=== PATIENT | female | born 1975 | race Caucasian/White ===

== ENCOUNTER 2023-01-01 08:59 | Outpatient (RCR) | payer OTHER, SELFPAY | END 2023-04-04 12:34 | disposition home or self-care (01) | LOC: PT 08:59 | DX: S83.249D Other tear of medial meniscus, current injury, unspecified knee, subsequent encounter (principal); R26.89 Other abnormalities of gait and mobility; R26.9 Unspecified abnormalities of gait and mobility | CPT/HCPCS: 97110; 97161; 97530 ==

== ENCOUNTER 2023-02-23 10:39 | Outpatient (OUT) | payer OTHER, SELFPAY ==
--- NOTE | 2023-02-23 11:00 | MR_ITS ---
[place] [id number] Patient Name: MEMO PERSAUD MRN: [id number] date: 1975 Sex: F Assigned Patient Location: MRI Current Patient Location: MRI Accession/Order Number: [id number] Exam Date: 02/23/2023 11:00 Report Date: 02/23/2023 14:58 At the request of: ROSIO MARIE Procedure: MR knee LT wo con EXAMINATION: MR knee LT wo con HISTORY: LEFT KNEE SPRAIN S83.92XA ; chronic left knee pain COMPARISON: No relevant comparison available. TECHNIQUE: A complete multi-planar MRI was performed. FINDINGS: MEDIAL COMPARTMENT MEDIAL MENISCUS: No visible tear or significant degeneration. CARTILAGE: No visible defect. BONES: 6 mm subchondral cysts along weightbearing surface of medial femoral condyle without appreciable disruption overlying cartilage. MCL AND MEDIAL CAPSULE: Normal medial collateral ligament and medial capsule. LATERAL COMPARTMENT LATERAL MENISCUS: No visible tear or significant degeneration. CARTILAGE: [Thinning and suspected defects overlying the anterior articular surface. BONES: Multiple small subchondral cysts along the anterior weightbearing surface and adjacent the patellar surface of the femoral condyle. LCL/POSTEROLAT COMPLEX: Normal lateral collateral ligament, fascicles, lateral capsule and ligaments. ANTERIOR COMPARTMENT PATELLA: Subchondral edema and suspected small subchondral cyst of the medial facet near the apex and the lateral aspect of the lateral facet, mid body. CARTILAGE: Thinning and suspected focal defects. TENDONS: Normal. EFFUSION: None. No synovitis or loose bodies. ACL: Normal appearing ligament. PCL: Normal appearing ligament. MENISCOFEMORAL: Normal meniscofemoral ligaments. OTHER: Negative. MR/MR knee LT wo con IMPRESSION: 1. Generalized] thinning throughout the knee with multiple subchondral cysts/subchondral defects involving the medial and lateral femoral condyles and the patella. 2. No appreciable meniscal injury. Electronically authenticated by: CLAUDIA LANGE Date: 02/23/2023 14:58
== END 2023-02-23 10:40 | disposition home or self-care (01) ==
PROVIDERS: Visit Provider Nurse Practitioner Family
DX: S83.92XA Sprain of unspecified site of left knee, initial encounter (principal)
CPT/HCPCS: 73721

== ENCOUNTER 2023-05-23 12:50 | Outpatient (RCR) | payer OTHER, SELFPAY | END 2023-05-24 16:29 | disposition home or self-care (01) | LOC: PT 12:50 | DX: S83.429D Sprain of lateral collateral ligament of unspecified knee, subsequent encounter (principal) | CPT/HCPCS: 97750 ==

== ENCOUNTER 2023-10-11 09:17 | Outpatient (OUT) | payer SELFPAY ==
--- NOTE | 2023-10-11 09:22 | CT_ITS ---
The [address] [address] Patient Name: MEMO PERSAUD MRN: [id number] date: 1975 Sex: F Assigned Patient Location: CT Current Patient Location: CT Accession/Order Number: [id number] Exam Date: 10/11/2023 10:09 Report Date: 10/11/2023 15:55 At the request of: ADAMARIS DIEHL Procedure: CT abdomen pelvis wo con CT abdomen pelvis wo con, 10/11/2023 10:09 AM EDT INDICATION: Abdominal Distention R14.0 Retention of urine R33.9 COMPARISON: There is no appropriate prior study for comparison. TECHNIQUE: Axial images of the abdomen were obtained with oral without IV contrast. Multiplanar reformatted images were generated and reviewed as needed. Dose reduction techniques were achieved by using automated exposure control and/or adjustment of mA and/or kV according to patient size and/or use of iterative reconstruction technique. FINDINGS: Lungs: The base of lungs is clear. No pleural effusion is noted. Liver and gallbladder: Hypodense lesions within the liver most likely consistent with simple cysts or hemangiomas. The gallbladder is unremarkable. No enlargement of intra or extrahepatic biliary ducts. Genitourinary system: Hypodense lesions within the right kidney are not fully characterized by this study. No hydronephrosis. Nonobstructive nephrolithiasis in the midpole of the left kidney.. No abnormality of the urinary bladder is noted. Other solid abdominal organs: adrenal glands, pancreas, and spleen are unremarkable. Aorta: The infrarenal abdominal aorta is nonaneurysmal. Free fluid: There is no free fluid in the abdomen pelvis. Lymph node: No lymph node enlargement by size criteria is noted. Stomach and Bowel: No abnormality of the stomach is noted. Colonic diverticulosis is noted. Otherwise, no significant abnormality of the small or large bowel is noted. Bone: There is no suspicious osteolytic or osteoblastic lesion. Lower lumbar spine degenerative changes are noted. CT/CT abdomen pelvis wo con IMPRESSION: No acute finding. Nonobstructing nephrolithiasis in midpole of the left kidney. Colonic diverticulosis. Electronically authenticated by: KATERINA REYES Date: 10/11/2023 15:55
== END 2023-10-11 09:18 | disposition home or self-care (01) ==
LOC: CT 09:17
PROVIDERS: PCP Family Medicine
DX: R14.0 Abdominal distension (gaseous) (principal); R33.9 Retention of urine, unspecified; N20.0 Calculus of kidney; K57.90 Diverticulosis of intestine, part unspecified, without perforation or abscess without bleeding
CPT/HCPCS: 74176

== ENCOUNTER 2023-10-11 09:40 | Outpatient (OUT) | payer SELFPAY ==
[2023-10-11 10:14] LABS: Basophils Absolute Auto 0.1 10^3/uL (0.0-0.1); Eosinophils Absolute Auto 0.5 10^3/uL (0.0-0.7); Eosinophils Percent Auto 6.8 % (0.9-7.0); Hematocrit 43.6 % (36.0-48.0); Hemoglobin 14.2 g/dL (12.0-16.0); Immature Granulocytes Abs Auto 0.02 10^3/uL (0.00-0.03); Immature Granulocytes Pct Auto 0.3 % (0.0-0.5); Lymphocytes Absolute Auto 1.6 10^3/uL (1.2-3.8); Lymphocytes Percent Auto 22.3 % (20.5-60.0); Mean Corpuscular HGB Conc 32.6 g/dL (29.9-35.2); Mean Corpuscular Hemoglobin 29.7 pg (26.7-34.0); Mean Corpuscular Volume 91.2 fL (81.0-99.0); Mean Platelet Volume 10.7 fL (9.5-13.5); Monocytes Absolute Auto 0.5 10^3/uL (0.3-0.8); Monocytes Percent Auto 6.8 % (1.7-12.0); Neutrophils Absolute Auto 4.5 10^3/uL (1.4-6.5); Neutrophils Percent Auto 62.8 % (43.0-75.0); Platelet Count 201 10^3/uL (150-450); Red Blood Count 4.78 10^6/uL (4.20-5.40); Red Cell Distribution Width 12.3 % (11.0-15.0); White Blood Count 7.2 10^3/uL (4.0-11.0)
[2023-10-11 11:40] LABS: Alanine Aminotransferase 40 U/L (14-59); Albumin Globulin Ratio 1.1; Albumin Level 3.8 g/dL (3.4-5.0); Alkaline Phosphatase 63 U/L (46-116); Anion Gap 16.8; Aspartate Amino Transferase 23 U/L (15-37); BUN Creatinine Ratio 18.9; Bilirubin Total 0.5 mg/dL (0.2-1.0); Calcium 9.1 mg/dL (8.5-10.1); Carbon Dioxide 21.3 mmol/L (21.0-32.0); Chloride 104 mmol/L (98-107); Chol HDL Ratio 5.2; Cholesterol 213 mg/dL (<=200); Estimated GFR (African America >60 (>=60); Estimated GFR (Non-African Ame >60 (>=60); Globulin 3.4 g/dL; Glucose 86 mg/dL (74-106); HDL Cholesterol 41 mg/dL (40-60); Potassium 4.1 mmol/L (3.5-5.1); Sodium 138 mmol/L (136-145); Total Protein 7.2 g/dL (6.4-8.2); Triglycerides 146 mg/dL (<=150); VLDL CHOLESTEROL 29.2 mg/dL
== END 2023-10-11 09:41 | disposition home or self-care (01) ==
LOC: LAB 09:43
PROVIDERS: PCP Family Medicine
DX: R39.15 Urgency of urination (principal); E66.09 Other obesity due to excess calories; Z13.1 Encounter for screening for diabetes mellitus; Z13.220 Encounter for screening for lipoid disorders; Z79.899 Other long term (current) drug therapy; Z68.39 Body mass index [BMI] 39.0-39.9, adult
CPT/HCPCS: 36415; 80053; 80061; 85025

== ENCOUNTER 2023-10-18 11:35 | Outpatient (OUT) | payer SELFPAY ==
--- NOTE | 2023-10-18 11:39 | MM_ITS ---
Patient Name: MEMO PERSAUD MR#: [id number] : 1975 Exam Date: 10/18/2023 Ordering Doctor: Non-Staff Physician RADIOLOGY REPORT PROCEDURE: MM TOMOSYNTHESIS SCREENING BI COMPARISON: MG MAMM SCREEN 3D KARTHIK CAD, 03/28/2019. MG MAMM SCREEN 3D KARTHIK CAD, 03/22/2018. MG MAMM SCREEN 3D KARTHIK CAD, 03/13/2017. MAMMO KARTHIK SCREEN, 03/29/2016. INDICATIONS: screening Calculator Name NCI Breast Cancer Risk Assessment Tool 5 Year Breast Cancer Risk 0.90% Lifetime Breast Cancer Risk 8.80% Personal Breast Cancer No Personal Ovarian Cancer No Treatments None Family Cancers Aunt-maternal with breast cancer at age ~70; Mother with thyroid cancer at age ~35; Father with prostate cancer at age 67; Brother with lymphoma cancer at age ~40. LOCATION: [facility] BREAST COMPOSITION: Scattered areas fibroglandular density. FINDINGS: DIAGNOSTIC CATEGORY 2--BENIGN FINDING: RIGHT BREAST: No significant suspicious finding. Stable small benign appearing lymph node within upper outer quadrant. No significant change has occurred. LEFT BREAST: No significant suspicious finding. No significant change has occurred. RECOMMENDATIONS: ROUTINE MAMMOGRAM AND CLINICAL EVALUATION IN 12 MONTHS. PLEASE NOTE: A NORMAL MAMMOGRAM DOES NOT EXCLUDE THE POSSIBILITY OF BREAST CANCER. A CLINICALLY SUSPICIOUS PALPABLE LUMP SHOULD BE BIOPSIED. Dictated by: Amador Dunbar M.D. on 10/19/2023 at 11:41 Approved by: Amador Dunbar M.D. on 10/19/2023 at 11:44
--- OUTSIDE RECORDS SUMMARY | 2023-10-18 11:45 | XMS_ITS | CCD ---
Author Organization [facility] Care Team Providers Care Batch Or Continuous Still Operator Name Role Phone CYNTHIA, ROSIO Admitting Unavailable CYNTHIA, ROSIO Attending Unavailable CYNTHIA, ROSIO Admitting Unavailable DR IVY OLVERA V Consulting Unavailable CYNTHIA, ROSIO Attending Unavailable CYNTHIA, ROSIO Consulting Unavailable CYNTHIA, ROSIO Admitting Unavailable CYNTHIA, ROSIO Attending Unavailable CYNTHIA, ROSIO Consulting Unavailable TINOCOJESSICA PARRA Consulting Unavailable NELIDA, DR MYRNA Case Consulting Unavailable EVELIN, IVY Attending Unavailable EVELIN, IVY Attending Unavailable EVELIN, IVY Attending Unavailable EVELIN, IVY Admitting Unavailable EVELIN, IVY Attending Unavailable EVELIN, IVY Attending Unavailable EVELIN, IVY Attending Unavailable EVELIN, IVY Attending Unavailable Myrna KRAUSE Attending Unavailable NELIDA, Myrna Case Attending Unavailable NELIDA, Myrna Case Attending Unavailable NELIDA, Myrna Case Attending Unavailable Myrna KRAUSE Attending Unavailable Mary Mccarthy Attending Unavailable Mary Mccarthy Attending Unavailable Mary Mccarthy Admitting Unavailable Allergies Allergy Classification Reported Allergen(s) Allergy Type Date of Onset Reaction(s) Facility Unclassified (1 source) Allergy to substance [facility] (1 source) DULoxetine; Translations: [DULOXETINE] Drug Allergy 07-03-2022 [facility] (1 source) DULoxetine; Translations: [Cymbalta] Drug Allergy [facility] Repository Problems Active Problems Problem Classification Problem Date Documented Da te Episodic/Chronic Joint disorders and dislocations; trauma-related (6 sources) Other tear of medial meniscus, current injury, right knee, subsequent encounter; Translations: [Other tear of medial meniscus, current injury, unspecified knee, initial encounter] Onset: 12-08-2021 Episodic Past or Other Problems Problem Classification Problem Date Documented Date Episodic/Chronic Other nervous system disorders (2 sources) Other acute postprocedural pain; Translations: [Other acute postprocedural pain] Onset: 12-07-2022 Episodic Other non-traumatic joint disorders (4 sources) Pain in right ankle and joints of right foot; Translations: [PAIN IN RIGHT ANKLE] Onset: 06-13-2021 Episodic Other non-traumatic joint disorders (1 source) Pain in right knee; Translations: [PAIN IN RIGHT KNEE] Onset: 06-21-2021 Episodic Other non-traumatic joint disorders (1 source) Pain in right shoulder; Translations: [PAIN IN RIGHT SHOULDER] Onset: 06-21-2021 Episodic Other non-traumatic joint disorders (1 source) Pain in right wrist; Translations: [PAIN IN RIGHT WRIST] Onset: 06-21-2021 Episodic Superficial injury; contusion (4 sources) Contusion of right knee, initial encounter; Translations: [CONTUSION RIGHT KNEE INITIAL ENC] Onset: 07-18-2021 Episodic Results Test Name Value Interpretation Reference Range Facility Lab Reportson 10-15-2023 Lab Reports [id number] 0TIFF Normal [facility] RAD - CT Reporton 10-12-2023 RAD - CT Report [id number] 0TIFF Normal [facility] C Urineon 10-10-2023 Bacteria identified Cx Nom (U) Microbiology PROCEDURE: Urine Culture [R1] SOURCE: U Cath BODY SITE: COLLECTED DATE/TIME: 10/08/2023 17:02 EDT RECEIVED DATE/TIME: 10/08/2023 22:35 EDT START DATE/TIME: 10/08/2023 22:35 EDT FREE TEXT SOURCE: Fabio MSN, PHOTO COLORER-STATISTICAL ASSISTANT, Fabio MSN, PHOTO COLORER-STATISTICAL ASSISTANT, Mary Liao FINAL REPORTS Final Report [] Verified Date/Time: 10/10/2023 07:24 EDT 4,000 cfu/ml Mixed skin contaminants Chantal not indicative of a Cath specimen Performing Locations R1: This test was performed at: locr, [address] [place] [address], [id number] , [place], Normal [facility] Comment on above: Performed By: #### 4 [id number] #### [facility] Laboratory [address] [place] [address] Ambulatory Visit Summaryon 0 10-08-2023 Ambulatory Visit Summary EMMA ROWLEY :1975 Visit Date:10/08/2023 Ambulatory Visit Instructions Your Diagnosis Urgency of urination Class 2 obesity due to excess calories in adult BMI 39.0-39.9,adult Breast cancer screening by mammogram Lipid screening Diabetes mellitus screening Medication management Tests Performed MA Mamm Screen w/CAD if perf and 3D Yassine -- Results Pending -- Please visit your patient portal for your results or contact your primary care physician. Your Care Team Attending Physician - Fabio ANTONIO, KENNY-Mary GRAHAM Primary Care Physician - NONE, XXXX This Is Your Medications List sulfamethoxazole-trime thoprim (Bactrim D.S. 800 mg-160 mg Tab) Contact prescribing physician if questions or concerns albuterol (Ventolin HFA 90 mcg/inh Aerosol) fluticasone nasal (fluticasone Nasal 0.05 mg/inh Colon) lisinopril (lisinopril 10 mg Tab) meclizine (meclizine 25 mg Tab) metoprolol (metoprolol 100 mg ER Tab) naproxen (naproxen 500 mg Tab) quetiapine (SEROquel 50 mg ER Tab) tizanidine (tiZANidine 4 mg Tab) Procedures Performed Arthroscopic synovectomy knee joint (12/07/2022), Meniscus (12/07/2022), robotic total laparoscopic hysterectomy with LSO with right salpingectomy (11/18/2014), bunion surgery on bilat feet, fracture of upper jaw above front teeth-surgery to repair, wisdom teeth extraction. Discharge Vitals Temperature (Oral) 37 ?C Heart Rate (Peripheral) 82 Respiratory Rate 16 Blood Pressure 132/88 Height 169 cm Height 67 in Weight 114.1 kg Weight 251.02 lb BMI 39.95 What to do next You Need to Schedule the Following Appointments Follow Up with Fabio ANTONIO, PHOTO COLORER-Mary GRAHAM When: Only if needed Comments: please fax mammogram to [facility] thank you Where: [address] [place] [phone] Medications What How Much When Instructions New sulfamethoxazole-trime thoprim (Bactrim D.S. 800 mg-160 mg Tab) 1 Tablets By Mouth Every 12 hours Duration: 7 Days Printed Prescription Unchanged albuterol (Ventolin HFA 90 mcg/ inh Aerosol) 2 Puffs Inhalation 4 times a day Contact prescribing physician if questions or concerns Unchanged fluticasone nasal (fluticasone Nasal 0.05 mg/ inh Colon) 2 Sprays Nasal Inhalation Every day each nostril Contact prescribing physician if questions or concerns Unchanged lisinopril (lisinopril 10 mg Tab) 1 Tablets By Mouth Every day Contact prescribing physician if questions or concerns Unchanged meclizine (meclizine 25 mg Tab) 1 Tablets By Mouth 3 times a day as needed for as needed for nausea/vomiting Contact prescribing physician if questions or concerns Unchanged metoprolol (metoprolol 100 mg ER Tab) 1 Tablets By Mouth 2 times a day Contact prescribing physician if questions or concerns Unchanged naproxen (naproxen 500 mg Tab) 1 Tablets By Mouth 2 times a day as needed for Pain 1-3 Contact prescribing physician if questions or concerns Unchanged quetiapine (SEROquel 50 mg ER Tab) 1 Tablets By Mouth Every day Contact prescribing physician if questions or concerns Unchanged tizanidine (tiZANidine 4 mg Tab) 0.5-1 tab By Mouth Every 8 hours as needed for Spasm Contact prescribing physician if questions or concerns Allergies Cymbalta (Tachycardia) Problems Ongoing - Any problem that you are currently receiving treatment for. Benign essential HTN Benign paroxysmal vertigo BMI 39.0-39.9,adult Chronic cough Chronic eustachian salpingitis, bilateral Class 2 obesity due to excess calories in adult Depression, major, recurrent, moderate Encounter for medication monitoring Endometriosis Fibromyalgia Hyperlipidemia, mixed IBS (irritable bowel syndrome) Mild persistent asthma Other specified hypothyroidism Urgency of urination Well adult exam Historical - Any problem that you are no longer receiving treatment for. COVID-19 virus infection Intermittent asthma with acute exacerbation Patient Survey You may receive a survey via text or e-mail asking about your office visit. Please share your experience with us by completing your survey. We appreciate your feedback and thank you for choosing us for your care. Education Materials DASH Eating Plan DASH stands for Dietary Approaches to Stop Hypertension. The DASH eating plan is a healthy eating plan that has been shown to: ? Reduce high blood pressure (hypertension). ? Reduce your risk for type 2 diabetes, heart disease, and stroke. ? Help with weight loss. What are tips for following this plan? Reading food labels ? Check food labels for the amount of salt (sodium) per serving. Choose foods with less than 5 percent of the Daily Value of sodium. Generally, foods with less than 300 milligrams (mg) of sodium per serving fit into this eating plan. ? To find whole grains, look for the word whole as the first word in the ingredient list. Shopping ? Buy products labeled as low-sodium or no salt (more content not included)... Normal [facility] Family Medicine Office/Clini c Noteon 10-08-2023 Family Medicine Office/Clinic Note Chief Complaint Pt presents for Dysuria , frequent urination x 3 days HPI Staff Frequency- yes Urgency-yes Small volume void- Dysuria- yes Pressure- Back pain- yes Nocturia- Fever/chills- Nausea/vomiting- UTI or other reason for antbx's last 30 days- Pt presents wit Dysuria x 3 days, Currently taking azo. History of Present Illness a 48-year-old female who is presenting today for urinary frequency, urgency, and pain. She has been taking Azo over the counter. She is accompanied by her . The patient underwent a hysterectomy in 2014 and retains one ovary, though it is uncertain if it is the right side. She has experienced pain over the years, including difficulty with urination, feeling as though something is obstructing her flow, and needing to urinate again shortly after. On 10/05/2023, she noticed she was holding urine longer than usual, which led to a bladder infection and kidney infection in the past. Her current symptoms are similar, including bloating, discomfort, frequency, and urgency on 10/05/2022, which were somewhat alleviated by Uristat. She also experiences lower back pain, particularly on the right side, and suspects she had a fever but has not checked her temperature. She has nausea but no vomiting or diarrhea. Her hygiene practices include showering and wiping front to back, and she uses the bathroom after intimacy. Her last urinary tract infection was 3 years ago. She does not consume enough water, avoids sodas and high sugar-containing drinks. She also feels like she is not fully emptying her bladder. Review of Systems PHQ Score Initial Depression Screen Score: 0 SCORE Negative as stated in the HPI. Physical Exam Vitals & Measurements T: 37 ?C(Oral) HR: 82(Peripheral) RR: 16 BP: 132/88 SpO2: 97% HT: 67 in HT: 169 cm WT: 114.1 kg WT: 251.02 lb BMI: 39.95 Constitutional: Well-groomed, well-nourished, no signs of acute distress. HEENT: Head normocephalic, sclera is clear. Cardiothoracic: Heart rate and rhythm is regular strong, normal S1 and S2. No murmurs, rubs, or bruits auscultated. No peripheral edema, peripheral pulses +2 Respiratory: Lung sounds are clear throughout, respirations regular nonlabored. Abdomen/GI: Abdomen soft nondistended. Positive for CVA tenderness noted. Tenderness to the pelvic area. Musculoskeletal: Gait is steady, full range of motion. Integument: No rashes or lesions noted to the exposed skin. Psychiatric: Alert and oriented x 3, pleasant, no mood changes. Assessment/Plan 1. Urgency of urination (R39.15: Urgency of urination) She does have some urgency, as well as pain. We tried doing a dipstick test but was unable to get an accurate reading. She was taking [id number] medication to help with the symptoms. I will send it in for a urinalysis and possibly a culture, but at this time at least with her symptoms and CVA tenderness, I will go ahead and send her for Bactrim. A prescription was given to her. Education was provided. Make sure she drinks plenty of water, has good hygiene, as well as voiding after intimacy. I informed her that if there is no improvement, we may need to do a CT of the abdomen and pelvis just to rule out any kidney stones. She verbalizes understanding. She will keep the provider updated. Ordered: CBC w/ Auto Diff Comprehensive Metabolic Panel Lipid Panel MA Mamm Screen w/CAD if perf and 3D Yassine UA with Cult Rflx Urine Culture 2. Class 2 obesity due to excess calories in adult (E66.09: Other obesity due to excess calories) Calorie restriction along with routine aerobic exercises discussed in order to avoid hypertension, osteoarthritis, metabolic syndrome and/or worsening of chronic underlying disease states. Ordered: CBC w/ Auto Diff Comprehensive Metabolic Panel Lipid Panel MA Mamm Screen w/CAD if perf and 3D Yassine UA with Cult Rflx Urine Culture 3. BMI 39.0-39.9,adult (Z68.39: Body mass index [BMI] 39.0-39.9, adult) See #2. Ordered: CBC w/ Auto Diff Comprehensive Metabolic Panel Lipid Panel MA Mamm Screen w/CAD if perf and 3D Yassine UA with Cult Rflx Urine Culture 4. Breast cancer screening by mammogram (Z12.31: Encounter for screening mammogram for malignant neoplasm of breast) She is due for her mammogram and is requesting it to be sent to the [facility] Ordered: CBC w/ Auto Diff Comprehensive Metabolic Panel Lipid Panel MA Mamm Screen w/CAD if perf and 3D Yassine 5. Lipid screening (Z13.220: Encounter for screening for lipoid disorders) She is due for her annual blood work we will go ahead and get those ordered she can have them done at the [facility] per her request we will call with results Ordered: CBC w/ Auto Diff Comprehensive Metabolic Panel Lipid Panel MA Mamm Screen w/CAD if perf and 3D Yassine 6. Diabetes mellitus screening (Z13.1: Encounter for screening for diabetes mellitus) See #5 Ordered: CBC w/ Auto Diff Comprehensive Metabolic Panel L (more content not included)... Normal [facility] Comment on above: Result Comment: Elec tronically Signed By: Fabio ANTONIO, PHOTO COLORER- Mary GRAHAM\.br\Date and Time Signed: 10/08/23 21:32 EDT\.br\Electronically Co-Signed By: Savannah Vaz\.br\Date and Time Co-Signed: 10/08/23 20:17 EDT Patient Educationon 10-08-19 Patient Education Nutrition DASH Eating Plan DASH stands for Dietary Approaches to Stop Hypertension. The DASH eating plan is a healthy eating plan that has been shown to: ? Reduce high blood pressure (hypertension). ? Reduce your risk for type 2 diabetes, heart disease, and stroke. ? Help with weight loss. What are tips for following this plan? Reading food labels ? Check food labels for the amount of salt (sodium) per serving. Choose foods with less than 5 percent of the Daily Value of sodium. Generally, foods with less than 300 milligrams (mg) of sodium per serving fit into this eating plan. ? To find whole grains, look for the word whole as the first word in the ingredient list. Shopping ? Buy products labeled as low-sodium or no salt added. ? Buy fresh foods. Avoid canned foods and pre-made or frozen meals. Cooking ? Avoid adding salt when cooking. Use salt-free seasonings or herbs instead of table salt or sea salt. Check with your health care provider or pharmacist before using salt substitutes. ? Do not kent foods. Cook foods using healthy methods such as baking, boiling, grilling, roasting, and broiling instead. ? Cook with heart-healthy oils, such as olive, canola, avocado, soybean, or sunflower oil. Meal planning ? Eat a balanced diet that includes: ? 4 or more servings of fruits and 4 or more servings of vegetables each day. Try to fill one-half of your plate with fruits and vegetables. ? 6?8 servings of whole grains each day. ? Less than 6 oz (170 g) of lean meat, poultry, or fish each day. A 3-oz (85-g) serving of meat is about the same size as a deck of cards. One egg equals 1 oz (28 g). ? 2?3 servings of low-fat dairy each day. One serving is 1 cup (237 mL). ? 1 serving of nuts, seeds, or beans 5 times each week. ? 2?3 servings of heart-healthy fats. Healthy fats called omega-3 fatty acids are found in foods such as walnuts, flaxseeds, fortified milks, and eggs. These fats are also found in cold-water fish, such as sardines, salmon, and mackerel. ? Limit how much you eat of: ? Canned or prepackaged foods. ? Food that is high in trans fat, such as some fried foods. ? Food that is high in saturated fat, such as fatty meat. ? Desserts and other sweets, sugary drinks, and other foods with added sugar. ? Full-fat dairy products. ? Do not salt foods before eating. ? Do not eat more than 4 egg yolks a week. ? Try to eat at least 2 vegetarian meals a week. ? Eat more home-cooked food and less restaurant, buffet, and fast food. Lifestyle ? When eating at a restaurant, ask that your food be prepared with less salt or no salt, if possible. ? If you drink alcohol: ? Limit how much you use to: ? 0?1 drink a day for women who are not . ? 0?2 drinks a day for men. ? Be aware of how much alcohol is in your drink. In the [place] one drink equals one 12 oz bottle of beer (355 mL), one 5 oz glass of wine (148 mL), or one 1? oz glass of hard liquor (44 mL). General information ? Avoid eating more than 2,300 mg of salt a day. If you have hypertension, you may need to reduce your sodium intake to 1,500 mg a day. ? Work with your health care provider to maintain a healthy body weight or to lose weight. Ask what an ideal weight is for you. ? Get at least 30 minutes of exercise that causes your heart to beat faster (aerobic exercise) most days of the week. Activities may include walking, swimming, or biking. ? Work with your health care provider or dietitian to adjust your eating plan to your individual calorie needs. What foods should I eat? Fruits All fresh, dried, or frozen fruit. Canned fruit in natural juice (without added sugar). Vegetables Fresh or frozen vegetables (raw, steamed, roasted, or grilled). Low-sodium or reduced-sodium tomato and vegetable juice. Low-sodium or reduced-sodium tomato sauce and tomato paste. Low-sodium or reduced-sodium canned vegetables. Grains Whole-grain or whole-wheat bread. Whole-grain or whole-wheat pasta. Brown rice. Oatmeal. Quinoa. Bulgur. Whole-grain and low-sodium cereals. Ronna bread. Low-fat, low-sodium crackers. Whole-wheat flour tortillas. Meats and other proteins Skinless chicken or turkey. Ground chicken or turkey. Pork with fat trimmed off. Fish and seafood. Egg whites. Dried beans, peas, or lentils. Unsalted nuts, nut butters, and seeds. Unsalted canned beans. Lean cuts of beef with fat trimmed off. Low-sodium, lean precooked or cured meat, such as sausages or meat loaves. Dairy Low-fat (1%) or fat-free (skim) milk. Reduced-fat, low-fat, or fat-free cheeses. Nonfat, low-sodium ricotta or cottage cheese. Low-fat or nonfat yogurt. Low-fat, low-sodium cheese. Fats and oils Soft margarine without trans fats. Vegetable oil. Reduced-fat, low-fat, or light mayonnaise and salad dressings (reduced-sodium). Canola, safflower, olive, avocado, soybean, and sunflower oils. Avocado. Seasonings and condiments Herbs. Spices. Seasoni (more content not included)... Normal [facility] UA with Cult Rflxon 10-08-19 24 Color (U) Dark-Yellow Abnormal Yellow [facility] Comment on above: Result Comment: Micr oscopic readings are only performed on those samples that meet specific criteria set forth by [facility]. Performed By: #### 4 [id number] #### [facility] [address] [place] [address] Glucose (U) [Mass/Vol] Negative Normal Negative [facility] Comment on above: Performed By: #### 4 [id number] #### [facility] [address] [place] [address] Ketones Ql (U) Negative Normal Negative [facility] Comment on above: Performed By: #### 4 [id number] #### [facility] [address] [place] [address] UA Blood Negative Normal Negative [facility] Comment on above: Performed By: #### 4 [id number] #### [facility] [address] [place] [address] UA Bili 1+ mg/dL Abnormal Negative [facility] Comment on above: Performed By: #### 4 [id number] #### [facility] [address] [place] [address] UA Clarity Clear Normal Clear [facility] Comment on above: Performed By: #### 4 [id number] #### [facility] [address] [place] [address] UA Leuk Est Negative Normal Negative [facility] Comment on above: Performed By: #### 4 [id number] #### [facility] [address] [place] [address] UA Mucous Negative Normal Negative [facility] Comment on above: Performed By: #### 4 [id number] #### [facility] [address] [place] [address] UA Nitrite 1+ mg/dL Abnormal Negative [facility] Comment on above: Performed By: #### 4 [id number] #### [facility] [address] [place] [address] UA pH 6.0 Invalid Interpretation Code 5.0-9.[address] [facility] Comment on above: Performed By: #### 4 [id number] #### [facility] [address] [place] [address] UA Protein Negative Normal Negative [facility] Comment on above: Performed By: #### 4 [id number] #### [facility] [address] [place] [address] UA Spec Grav 1.020 Invalid Interpretation Code 1.005-1.[address] [facility] Comment on above: Performed By: #### 4 [id number] #### [facility] [address] [place] [address] UA Squam Epithelial 5-8 Abnormal 0-[address] [facility] Comment on above: Performed By: #### 4 [id number] #### [facility] [address] [place] [address] UA Urobilinogen 3 mg/dL Abnormal Negative [facility] Comment on above: Performed By: #### 4 [id number] #### [facility] [address] [place] [address] UA WBC 0-5 Normal 0-[address] [facility] Comment on above: Performed By: #### 4 [id number] #### [facility] [address] [place] [address] UA Spec Desc Clean Catch Normal [facility] Comment on above: Performed By: #### 4 [id number] #### [facility] [address] [place] [address] Physician Referralon 023 Physician Referral [id number] [id number] Normal [facility] Ambulatory Visit Summaryon 1 08-19-2022 Ambulatory Visit Summary EMMA ROWLEY :1975 Visit Date:06/18/2023 Ambulatory Visit Instructions Your Diagnosis Benign essential HTN Depression, major, recurrent, moderate Other specified hypothyroidism Chronic eustachian salpingitis, bilateral BMI 39.0-39.9,adult Obesity due to excess calories Tests Performed MA Mamm Screen w/CAD if perf and 3D Yassine -- Results Pending -- Please visit your patient portal for your results or contact your primary care physician. Your Care Team Attending Physician - Myrna KRAUSE MD, FAAFP Primary Care Physician - Myrna KRAUSE MD, FAAFP This Is Your Medications List fluticasone nasal (fluticasone Nasal 0.05 mg/inh Colon) lisinopril (lisinopril 10 mg Tab) Contact prescribing physician if questions or concerns albuterol (Ventolin HFA 90 mcg/inh Aerosol) meclizine (meclizine 25 mg Tab) metoprolol (metoprolol 100 mg ER Tab) naproxen (naproxen 500 mg Tab) quetiapine (SEROquel 50 mg ER Tab) tizanidine (tiZANidine 4 mg Tab) Procedures Performed Arthroscopic synovectomy knee joint (12/07/2022), Meniscus (12/07/2022), robotic total laparoscopic hysterectomy with LSO with right salpingectomy (11/18/2014), bunion surgery on bilat feet, fracture of upper jaw above front teeth-surgery to repair, wisdom teeth extraction. Discharge Vitals Heart Rate (Peripheral) 73 Respiratory Rate 16 Blood Pressure 140/92 Height 169 cm Height 67 in Weight 113.2 kg Weight 249.04 lb BMI 39.63 What to do next You Need to Schedule the Following Appointments Follow Up with NELIDA MILIAN FAAFP, SUSHMA [place] When: Comments: see provider 6mo. all orders are outside Where: Medications What How Much When Instructions Changed fluticasone nasal (fluticasone Nasal 0.05 mg/ inh Colon) 2 Sprays Nasal Inhalation Every day each nostril Pickup at [id number] Unchanged lisinopril (lisinopril 10 mg Tab) 1 Tablets By Mouth Every day Pickup at [facility] Unchanged albuterol (Ventolin HFA 90 mcg/ inh Aerosol) 2 Puffs Inhalation 4 times a day Contact prescribing physician if questions or concerns Unchanged meclizine (meclizine 25 mg Tab) 1 Tablets By Mouth 3 times a day as needed for as needed for nausea/vomiting Contact prescribing physician if questions or concerns Unchanged metoprolol (metoprolol 100 mg ER Tab) 1 Tablets By Mouth 2 times a day Contact prescribing physician if questions or concerns Unchanged naproxen (naproxen 500 mg Tab) 1 Tablets By Mouth 2 times a day as needed for Pain 1-3 Contact prescribing physician if questions or concerns Unchanged quetiapine (SEROquel 50 mg ER Tab) 1 Tablets By Mouth Every day Contact prescribing physician if questions or concerns Unchanged tizanidine (tiZANidine 4 mg Tab) 0.5-1 tab By Mouth Every 8 hours as needed for Spasm Contact prescribing physician if questions or concerns Pharmacy Information [facility]: [address] [facility] [address] [place], [place] [phone] [email or web address] #[id number]: [address] [place], [place] [id number] [phone] Medications and Immunizations Administered Not Given influenza virus vaccine, inactivated, Parent Or Guardian Refuses Allergies Cymbalta (Tachycardia) Problems Ongoing - Any problem that you are currently receiving treatment for. Benign essential HTN Benign paroxysmal vertigo BMI 39.0-39.9,adult Chronic cough Chronic eustachian salpingitis, bilateral Depression, major, recurrent, moderate Encounter for medication monitoring Endometriosis Fibromyalgia Hyperlipidemia, mixed IBS (irritable bowel syndrome) Mild persistent asthma Obesity due to excess calories Other specified hypothyroidism Well adult exam Historical - Any problem that you are no longer receiving treatment for. Breast cancer screening by mammogram COVID-19 virus infection Intermittent asthma with acute exacerbation Patient Survey You may receive a survey via text or e-mail asking about your office visit. Please share your experience with us by completing your survey. We appreciate your feedback and thank you for choosing us for your care. Education Materials Hypothyroidism Hypothyroidism is when the thyroid gland does not make enough of certain hormones. This is called an underactive thyroid. The thyroid gland is a small gland located in the lower front part of the neck, just in front of the windpipe (trachea). This gland makes hormones that help control how the body uses food for energy (metabolism) as well as how the heart and brain function. These hormones also play a role in keeping your bones strong. When the thyroid is underactive, it produces too little of the hormones thyroxine (T4) and triiodothyronine (T3). What are the causes? This condition may be caused by: ? Ilda's disease. This is a disease in which the body's disease-fighting system (immune system) attacks the thyro (more content not included)... Normal [facility] Family Medicine Office/Clini c Noteon 06-18-2023 Family Medicine Office/Clinic Note Chief Complaint 6 Month Htn F/u . needs lisinopril refilled. send to [facility]. c/o yassine ear fullness x 2 weeks History of Present Illness She is accompanied by her She has not taken her lisinopril in a while because she forgot to take it. She got a prescription and was supposed to see me after a month but did not make the appointment. Her worker's compensation provider asked her to take her blood pressure medication because her BP has been elevated at those visits. She is here to refill the med, she continues metoprolol otherwise. She denies any side effects with the lisinopril. She did not have a headache prior to taking the 2 meds together. She had a functional capacity exam after injury and knee surgery, she was told that she can not return to her job at [employer]. Her left knee is now affected from doing the extra for the right knee being injured. She has synovitis and inflammation which is not being specifically addressed by Worker's Compensation provider. She suspect she is near the end of the Worker's Compensation process and that she may be referred to vocational rehabilitation. Regards her mood she does continue with chronic insomnia. She has always been a night owl, but it seems to go to sleep even later because she can not turn off her brain. She does not necessarily need Seroquel for her mood but it was initially started at a low dose because of her insomnia racing thoughts. 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 She does not feel completely rested in the morning, but once she falls asleep, she stays asleep. She uses an alarm. Overall she does not feel depressed, her concurs. She has reactive airways, she uses beta agonist inhaler as needed. She has decided not to have flu vaccine despite the risk of respiratory infections for her. Her left ear has been bothering her for a while. It was draining clear fluid and feels chronically plugged. She used hydrogen drops and an home agent. With no relief it has been miserable for at least a couple of weeks. Her ears were popping a little bit last night. She feels like she is almost under water. She has used Flonase a couple of times only. They do not have a humidifier in the home. She will be due for mammogram. Review of Systems PHQ Score Initial Depression Screen Score: 0 SCORE As above HPI, otherwise ROS negative Physical Exam Vitals & Measurements HR: 73(Peripheral) RR: 16 BP: 140/92 SpO2: 97% HT: 67 in HT: 169 cm WT: 113.2 kg WT: 249.04 lb BMI: 39.63 The patient is overweight, no acute distress. Ears, TMs retracted, particularly on the left, there are no effusions bilaterally, no erythema. The EACs are clear. Neck: No JVD or bruits. No thyromegaly. Lungs: Clear breath sounds throughout. Heart: Regular rate and rhythm. No murmur. Extremities: No edema, distal pulses 2+. Assessment/Plan 1. Benign essential HTN (I10: Essential (primary) hypertension) She had not been consistently compliant with the addition of lisinopril 10 mg but denies side effects thus we will continue this as well as current dose metoprolol. Renal labs are due, this lab order handed to patient. Continue to monitor blood pressure. Ordered: Comprehensive Metabolic Panel TSH With T4fr Reflex 2. Depression, major, recurrent, moderate (F33.1: Major depressive disorder, recurrent, moderate) She continues with some sleep difficulties, does not wish to increase Seroquel dose as it is somewhat helpful for the repetitive thoughts at night. We have asked her to improve sleep hygiene. Currently no other meds indicated for mood. 3. Other specified hypothyroidism (E03.8: Other specified hypothyroidism) TSH order is handed to the patient, this is a prior diagnosis not requiring thyroid replacement and we will remove the diagnosis should she have another normal TSH this year. Ordered: Comprehensive Metabolic Panel TSH With T4fr Reflex 4. Chronic eustachian salpingitis, bilateral (H68.023: Chronic Eustachian salpingitis, bilateral) Recommend she be more persistent with Flonase, also to humidify the home environment. Avoid adding moisture to the ear canals. 5. BMI 39.0-39.9,adult (Z68.39: Body mass index [BMI] 39.0-39.9, adult) Urged healthy diet with decreased calories and increased vegetables. Encouraged increased activity and a goal of 150min per week of exercise. 6. Obesity due to excess calories (E66.09: Other obesity due to excess calories) Increases risk to ASCVD. We note that her fasting glucose last year was normal but will check this again due to risk of diabetes overall. Orders: fluticasone nasal, 2 spray(s), Nasal, Daily, 3 EA, Refill(s) 1, each nostril, [id number], 169, cm, 06/18/23 11:00:00 EST, Height/Length Dosing, 113.2, kg, 06/18/23 11:00:00 EST, Weight Dosing lisinopril, 10 mg = 1 tab(s), Oral, Daily, # 90 tab(s), Refills(s) 1, Pharmacy: [facility], 169, cm, 06/18/23 11:00:00 EST, Height/Length Dosing, 113 (more content not included)... Normal [facility] Comment on above: Result Comment: Elec tronically Signed By: NELIDA MILIAN FAAKATELYN, Myrna Case\.br\Date and Time Signed: 06/18/23 13:06 EST Patient Educationon 06-18-20 Patient Education Endocrinology Hypothyroidism Hypothyroidism is when the thyroid gland does not make enough of certain hormones. This is called an underactive thyroid. The thyroid gland is a small gland located in the lower front part of the neck, just in front of the windpipe (trachea). This gland makes hormones that help control how the body uses food for energy (metabolism) as well as how the heart and brain function. These hormones also play a role in keeping your bones strong. When the thyroid is underactive, it produces too little of the hormones thyroxine (T4) and triiodothyronine (T3). What are the causes? This condition may be caused by: ? Ilda's disease. This is a disease in which the body's disease-fighting system (immune system) attacks the thyroid gland. This is the most common cause. ? Viral infections. ? . ? Certain medicines. ? defects. ? Problems with a gland in the center of the brain (pituitary gland). ? Lack of enough iodine in the diet. Other causes may include: ? Past radiation treatments to the head or neck for cancer. ? Past treatment with radioactive iodine. ? Past exposure to radiation in the environment. ? Past surgical removal of part or all of the thyroid. What increases the risk? You are more likely to develop this condition if: ? You are female. ? You have a family history of thyroid conditions. ? You use a medicine called lithium. ? You take medicines that affect the immune system (immunosuppressants). What are the signs or symptoms? Common symptoms of this condition include: ? Not being able to tolerate cold. ? Feeling as though you have no energy (lethargy). ? Lack of appetite. ? Constipation. ? Sadness or depression. ? Weight gain that is not explained by a change in diet or exercise habits. ? Menstrual irregularity. ? Dry skin, coarse hair, or brittle nails. Other symptoms may include: ? Muscle pain. ? Slowing of thought processes. ? Poor memory. How is this diagnosed? This condition may be diagnosed based on: ? Your symptoms, your medical history, and a physical exam. ? Blood tests. You may also have imaging tests, such as an ultrasound or MRI. How is this treated? This condition is treated with medicine that replaces the thyroid hormones that your body does not make. After you begin treatment, it may take several weeks for symptoms to go away. Follow these instructions at home: ? Take [id number] and prescription medicines only as told by your health care provider. ? If you start taking any new medicines, tell your health care provider. ? Keep all follow-up visits as told by your health care provider. This is important. ? As your condition improves, your dosage of thyroid hormone medicine may change. ? You will need to have blood tests regularly so that your health care provider can monitor your condition. Contact a health care provider if: ? Your symptoms do not get better with treatment. ? You are taking thyroid hormone replacement medicine and you: ? Sweat a lot. ? Have tremors. ? Feel anxious. ? Lose weight rapidly. ? Cannot tolerate heat. ? Have emotional swings. ? Have diarrhea. ? Feel weak. Get help right away if: ? You have chest pain. ? You have an irregular heartbeat. ? You have a rapid heartbeat. ? You have difficulty breathing. These symptoms may be an emergency. Get help right away. Call 911. ? Do not wait to see if the symptoms will go away. ? Do not drive yourself to the hospital. Summary ? Hypothyroidism is when the thyroid gland does not make enough of certain hormones (it is underactive). ? When the thyroid is underactive, it produces too little of the hormones thyroxine (T4) and triiodothyronine (T3). ? The most common cause is Ilda's disease, a disease in which the body's disease-fighting system (immune system) attacks the thyroid gland. The condition can also be caused by viral infections, medicine, , or past radiation treatment to the head or neck. ? Symptoms may include weight gain, dry skin, constipation, feeling as though you do not have energy, and not being able to tolerate cold. ? This condition is treated with medicine to replace the thyroid hormones that your body does not make. This information is not intended to replace advice given to you by your health care provider. Make sure you discuss any questions you have with your health care provider. Document Revised: 07/04/2022 Document Reviewed: 07/04/2022 [employer] Patient Education ? 2022 [employer] [facility] Orders Onlyon 05-11-2023 Orders Only [id number] Date Provider Department Center 05/11/2023 PRASHANT EUCEDA MP ORTHO MP[facility]THO Family History Problem Relation Age of Onset Hypertension Mother Hyperlipidemia Mother Family Status - Relation Status Age at Mother [facility] Follow-Upon 04-02-2023 Follow-Up [id number] Date Provider Department Center 04/02/2023 IVY WILKINS MP MPORTHO Family History Problem Relation Age of Onset Hypertension Mother Hyperlipidemia Mother Family Status - Relation Status Age at Mother Level of Service:11608 [place] OFFICE/OUTPATIENT ESTABLISHED LOW MDM 20-29 MIN Reason for Visit and Comments: Follow-up [[id number]] [facility] Office Visiton 01-29-2023 Follow-up visit [id number] Date Provider Department Center 01/29/2023 IVY WILKINS MPRTHO Family History Problem Relation Age of Onset Hypertension Mother Hyperlipidemia Mother Family Status - Relation Status Age at Mother Level of Service:69404 [place] POSTOP FOLLOW UP VISIT RELATED TO ORIGINAL PX Reason for Visit and Comments: Pain [136] [facility] Ambulatory Visit Summaryon 0 12-29-2022 Ambulatory Visit Summary AMRIKDecember :1975 Visit Date:12/29/2022 Ambulatory Visit Instructions Your Diagnosis Benign essential HTN Depression, major, recurrent, moderate Other specified hypothyroidism Benign paroxysmal vertigo BMI 39.0-39.9,adult Obesity due to excess calories Your Care Team Attending Physician - Myrna KRAUSE MD, FAAFP Primary Care Physician - Myrna KRAUSE MD, FAAFP This Is Your Medications List lisinopril (lisinopril 10 mg Tab) Contact prescribing physician if questions or concerns albuterol (Ventolin HFA 90 mcg/inh Aerosol) fluticasone nasal (fluticasone 0.05 mg/inh Nasal [place]) meclizine (meclizine 25 mg Tab) metoprolol (metoprolol 100 mg ER Tab) naproxen (naproxen 500 mg Tab) quetiapine (SEROquel 50 mg ER Tab) tizanidine (tiZANidine 4 mg Tab) Procedures Performed Arthroscopic synovectomy knee joint (12/07/2022), Meniscus (12/07/2022), robotic total laparoscopic hysterectomy with LSO with right salpingectomy (11/18/2014), bunion surgery on bilat feet, fracture of upper jaw above front teeth-surgery to repair, wisdom teeth extraction. Discharge Vitals Temperature (Temporal Artery) 37.1 ?C Heart Rate (Peripheral) 76 Respiratory Rate 16 Blood Pressure 152/102 Height 67 in Height 169 cm Weight 246.4 lb Weight 112 kg BMI 39.21 What to do next Scheduled Follow-Up Appointments Sunday 1:20 PM EDT With: NELIDA MILIAN FAAKATELYN, Myrna Case Where: [facility] [place] Normal [facility] Family Medicine Office/Clini c Noteon 12-29-2022 Family Medicine Office/Clinic Note Chief Complaint Pt here for 6 month check up room 3 History of Present Illness December had right knee arthroscopy on 12/07/2022 at [facility] over 1 year from the episode at work where she injured her knee. She had blood work done prior to that at [facility] which was reassuring and otherwise normal. There was a pathology specimen sent of some inflammatory tissue from the internal right knee, no other insight or explanation leading to diagnosis was given. She hopes to be getting more active again as she recovers. She has had vertigo since her fall. She thought she was doing well with that until her surgery, but her vertigo has increased. She is wondering if it is her allergies. She is not feeling hungry, and she is not eating. She is gaining weight. She tells herself that she has to eat something because she is feeling weak and shaky. She has not had any other changes since her surgery. She is feeling stressed about a lot of things. Her daughter is going through a divorce. A agrees that a therapist would possibly help her. She has noticed that she cannot focus on anything and has worsened with age. She had a hysterectomy in 2014. She has 1 ovary left and feels as though there may be a cyst. It still bothers her quite a lot. She has some sleep disturbance, no vasomotor symptoms. She has a blood pressure cuff at home and readings have been elevated for at least a month as she continues metoprolol. She has been getting headaches despite this medication. The last 3 days when she felt like her blood pressure was so high, she took additional 25 mg metoprolol. She is not sure if it helped. She could not see straight. She has been very conscious of making better choices and cut out soda. She denies any heart palpitations or swollen ankles. Her occupational medicine providers have also reported that her blood pressure is elevated. She was on Saxenda at least 3 years ago for less than a year. S struggles with her weight and would like to have additional help for weight loss particularly as she recovers from the surgery and wishes to get more active by biking or swimming. She kept telling herself that she is going to lose 50 pounds. Review of Systems PHQ Score Initial Depression Screen Score: 2 Review of systems is as per above in HPI. Physical Exam Vitals & Measurements T: 37.1 ?C(Temporal Artery) HR: 76(Peripheral) RR: 16 BP: 152/102 SpO2: 95% HT: 67 in HT: 169 cm WT: 112 kg WT: 246.4 lb BMI: 39.21 General: Patient is overweight, in no acute distress. Neck: Supple, no thyromegaly, JVD or bruits. Heart: Regular rate and rhythm, no murmur. Extremities: No edema of the ankles or feet and the dorsalis pedis pulses 2+ bilaterally. The right knee with port entry siteshealing well in the peripatellar areas. Assessment/Plan 1. Benign essential HTN (I10: Essential (primary) hypertension) Her blood pressure has not been controlled for at least the last month and noted both at home and other physician offices such as her occupational health provider. She is taking substantial dose of metoprolol also for rate control and anxiety thus I would not increase this, an PASCUAL inhibitor would be more effective thus we are starting 10 mg per day, half tablet per day if her blood pressure is notably decreased by symptoms rapidly. Discussed potential side effects. 2. Depression, major, recurrent, moderate (F33.1: Major depressive disorder, recurrent, moderate) She continues Seroquel at bedtime with benefit, however, overall, we discussed her relationship situation and lifestyle which is much more conducive to her even mood than years ago in her previous marriage. We talked and encouraged that she considers counseling, however, to deal with anxiety and she will consider this as potential referral. 3. Other specified hypothyroidism (E03.8: Other specified hypothyroidism) TSH was at goal 6 to 8 months ago. 4. Benign paroxysmal vertigo (H81.10: Benign paroxysmal vertigo, unspecified ear) The symptoms do seem to increase as her blood pressure increased. 5. BMI 39.0-39.9,adult (Z68.39: Body mass index [BMI] 39.0-39.9, adult) Urged healthy diet with decreased calories and increased vegetables. Encouraged increased activity and a goal of 150 minutes per week of exercise. Ordered: semaglutide, 0.25 mg, SubCutaneous, qWeek, X 4 week(s), # 4 EA, Refills(s) 0, Pharmacy: [id number], 169, cm, 12/29/22 8:32:00 EDT, Height/Length Dosing, 112, kg, 12/29/22 8:32:00 EDT, Weight Dosing 6. Obesity due to excess calories (E66.09: Other obesity due to excess calories) Increases risk to ASCVD. She would be willing to use GLP-1 medication again if this is covered by her insurance and will inquire about a Wegov[employer]. Orders: lisinopril, 10 mg = 1 tab(s), Oral, Daily, # 90 tab(s), Refills(s) 0, Pharmacy: [facility], 169, cm, 12/29/22 8:32:00 EDT, Height/Length Dosing, 112, kg, 12/29/22 8:32:00 EDT, Weight Dosing Portions of this record may have been created with (more content not included)... Normal [facility] Comment on above: Result Comment: Elec tronically Signed By: Myrna KRAUSE MD, FAAFP\.br\Date and Time Signed: 12/29/22 13:04 EDT\.br\Electronically Co-Signed By: Linda Prado\.br\Date and Time Co-Signed: 12/29/22 12:53 EDT Patient Educationon 12-30-19 Patient Education Endocrinology Hypothyroidism Hypothyroidism is when the thyroid gland does not make enough of certain hormones. This is called an underactive thyroid. The thyroid gland is a small gland located in the lower front part of the neck, just in front of the windpipe (trachea). This gland makes hormones that help control how the body uses food for energy (metabolism) as well as how the heart and brain function. These hormones also play a role in keeping your bones strong. When the thyroid is underactive, it produces too little of the hormones thyroxine (T4) and triiodothyronine (T3). What are the causes? This condition may be caused by: ? Ilda's disease. This is a disease in which the body's disease-fighting system (immune system) attacks the thyroid gland. This is the most common cause. ? Viral infections. ? . ? Certain medicines. ? defects. ? Problems with a gland in the center of the brain (pituitary gland). ? Lack of enough iodine in the diet. Other causes may include: ? Past radiation treatments to the head or neck for cancer. ? Past treatment with radioactive iodine. ? Past exposure to radiation in the environment. ? Past surgical removal of part or all of the thyroid. What increases the risk? You are more likely to develop this condition if: ? You are female. ? You have a family history of thyroid conditions. ? You use a medicine called lithium. ? You take medicines that affect the immune system (immunosuppressants). What are the signs or symptoms? Common symptoms of this condition include: ? Not being able to tolerate cold. ? Feeling as though you have no energy (lethargy). ? Lack of appetite. ? Constipation. ? Sadness or depression. ? Weight gain that is not explained by a change in diet or exercise habits. ? Menstrual irregularity. ? Dry skin, coarse hair, or brittle nails. Other symptoms may include: ? Muscle pain. ? Slowing of thought processes. ? Poor memory. How is this diagnosed? This condition may be diagnosed based on: ? Your symptoms, your medical history, and a physical exam. ? Blood tests. You may also have imaging tests, such as an ultrasound or MRI. How is this treated? This condition is treated with medicine that replaces the thyroid hormones that your body does not make. After you begin treatment, it may take several weeks for symptoms to go away. Follow these instructions at home: ? Take bbyl-ecy-klavtyc and prescription medicines only as told by your health care provider. ? If you start taking any new medicines, tell your health care provider. ? Keep all follow-up visits as told by your health care provider. This is important. ? As your condition improves, your dosage of thyroid hormone medicine may change. ? You will need to have blood tests regularly so that your health care provider can monitor your condition. Contact a health care provider if: ? Your symptoms do not get better with treatment. ? You are taking thyroid hormone replacement medicine and you: ? Sweat a lot. ? Have tremors. ? Feel anxious. ? Lose weight rapidly. ? Cannot tolerate heat. ? Have emotional swings. ? Have diarrhea. ? Feel weak. Get help right away if: ? You have chest pain. ? You have an irregular heartbeat. ? You have a rapid heartbeat. ? You have difficulty breathing. These symptoms may be an emergency. Get help right away. Call 911. ? Do not wait to see if the symptoms will go away. ? Do not drive yourself to the hospital. Summary ? Hypothyroidism is when the thyroid gland does not make enough of certain hormones (it is underactive). ? When the thyroid is underactive, it produces too little of the hormones thyroxine (T4) and triiodothyronine (T3). ? The most common cause is Ilda's disease, a disease in which the body's disease-fighting system (immune system) attacks the thyroid gland. The condition can also be caused by viral infections, medicine, , or past radiation treatment to the head or neck. ? Symptoms may include weight gain, dry skin, constipation, feeling as though you do not have energy, and not being able to tolerate cold. ? This condition is treated with medicine to replace the thyroid hormones that your body does not make. This information is not intended to replace advice given to you by your health care provider. Make sure you discuss any questions you have with your health care provider. Document Revised: 07/04/2022 Document Reviewed: 07/04/2022 Elsevier Patient Education ? 2022 [employer] [facility] Consultation Noteon 12-20-19 23 Consultation Note [id number] [facility] Office Visiton 12-18-2022 Follow-up visit [id number] Emma Rowley 1975 F Date Provider Department Center 12/18/2022 44IVY ROSALES MP ORTHO MPORTHO Family History Problem Relation Age of Onset Hypertension Mother Hyperlipidemia Mother Family Status - Relation Status Age at Mother Level of Service:65831 [place] POSTOP FOLLOW UP VISIT RELATED TO ORIGINAL PX Reason for Visit and Comments: Follow-up [675326] [facility] 36on 12-14-2022 36 Pt notified that biopsy was benign [facility] 36on 12-08-2022 36 Pt called stating th at she had questions regarding her surgery and then states that she is requesting a call back regarding her Biopsy results and wanting to know if she is still going to have to do therapy since she had her surgery. Pt states that she has other questions, and that she does not have a PO issue. [facility] HISTOLOGY - TISSUE EXAMon LAB AP CASE REPORT [facility] Comment on above: Order Comment: Pre-o p diagnosis:Acute tear of posterior horn of medial meniscus [S83.249A] Result Comment: Surg ical Pathology Case: [id number] Authorizing Provider: Ivy Waters MD Collected: 12/07/2022 0942 Ordering Location: [facility] Received: 12/07/2022 1053 [facility] Pathologist: Cydney Rivas MD Specimen: Knee, right knee synovium Performed By: #### L [id number] ####[facility] (AKER)[address] [place] [address] LAB AP CLINICAL INFORMATION [facility] Comment on above: Order Comment: Pre-o p diagnosis:Acute tear of posterior horn of medial meniscus [S83.249A] Result Comment: Post -Op Diagnoses M65.9 - Synovitis of right knee [ICD-10-CM] 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 Knee. [facility] Comment on above: Order Comment: Pre-o p diagnosis:Acute tear of posterior horn of medial meniscus [S83.249A] Result Comment: Rece ived in formalin in a container labeled Emma Rowley, right knee synovium , are multiple mendes soft tissue fragments measuring 2.7 x 0.9 x 0.1 cm in aggregate. The specimen is filtered in a Nilan bag and submitted entirely in 1 cassette. Keri Saeed, PGY3 Performed By: #### L [id number] ####[facility] (BE[facility])[address] [place] [address] LAB AP MICROSCOPIC DESCRIPTION Microscopic examination performed. [facility] Comment on above: Order Comment: Pre-o p diagnosis:Acute tear of posterior horn of medial meniscus [S83.249A] Performed By: #### L [id number] ####[facility] (BE[facility]ER)[address] [place] [address] LAB AP REPORT FINAL DIAGNOSIS NARRATIVE [facility] Comment on above: Order Comment: Pre-o p diagnosis:Acute tear of posterior horn of medial meniscus [S83.249A] Result Comment: A. S ynovium, right knee, biopsy: - Benign synovium and fibroadipose tissue. Performed By: #### L [id number] ####[facility] ([facility]ER)[address] [place] [address] OPNOTEon 12-07-2022 OPNOTE RIGHT KNEE EXTENSIVE SYNOVECTOMY, RIGHT KNEE BIOPSY, RIGHT KNEE PATELLAR CHONDROPLASTY (R) Operative Note Date: 12/07/2022 Location: [facility] OR Name: Emma Rowley, : 1975, Diagnosis Pre-op Diagnosis * Acute tear of posterior horn of medial meniscus [S83.249A] Post-op Diagnosis * Synovitis of right knee [M65.9] * Chondromalacia, knee, right [M94.261] Procedures * RIGHT KNEE EXTENSIVE SYNOVECTOMY, RIGHT KNEE BIOPSY, RIGHT KNEE PATELLAR CHONDROPLASTY [place] SURGICAL ARTHROSCOPY SHOULDER XTNSV DBRDMT 3+ [[id number]] MN BIOPSY SYNOVIUM KNEE JOINT [[id number]] MN ARTHRS KNEE DEBRIDEMENT/SHAVING ARTCLR CRTLG [[id number]] Surgeons * Ivy Waters - Primary Procedure Summary Anesthesia: General ASA: II Estimated Blood Loss: Minimal Total IV Fluids: mL Drains: * None in log * Specimens ID Source Type Tests Collected By Collected At Frozen? Priority Lab ID A Knee Synovium HISTOLOGY - TISSUE EXAM Ivy Waters MD 12/07/22 0942 Nurse Timed Description: right knee synovium Staff: Resin Coater: Dennis Cummings RN Scrub Person: Jennie Saeed Indications: Emma Rowley is an 47 y.o. female who is having surgery for Acute tear of posterior horn of medial meniscus [S83.249A]. Procedure Details: The patient was seen in the preoperative area. The risks, benefits, complications, treatment options, non-operative alternatives, expected recovery and outcomes were discussed with the patient. The possibilities of reaction to medication, pulmonary aspiration, injury to surrounding structures, bleeding, recurrent infection, the need for additional procedures, failure to diagnose a condition, and creating a complication requiring transfusion or operation were discussed with the patient. The patient concurred with the proposed plan, giving informed consent. The site of surgery was properly noted/marked if necessary per policy. The patient has been actively warmed in preoperative area. Preoperative antibiotics have been ordered and given within 1 hours of incision. Venous thrombosis prophylaxis have been ordered including unilateral sequential compression device Findings: After confirmation and marking of the right knee in the preoperative holding area, patient was brought back to the operating suite and placed in the supine position. All pressure points were adequately padded. General endotracheal anesthesia was smoothly induced preoperative antibiotics were administered. After observation of a surgical timeout procedure using 2 separate patient identifiers, we began with the case. After sterile prep and draping of the knee we first started with infiltrating the knee itself and the proposed incisions with 20 cc 1% lidocaine with epinephrine. We then created a standard arthroscopy portals. There was not synovitis in the medial, lateral compartments. There was synovitis in the patellofemoral compartment. All synovitis was cleared out. A probe was inserted and we began with a diagnostic arthroscopy. We first inspected the medial compartment. We inspected the medial meniscus and the articular cartilage surfaces. Medial meniscus was intact. Cartilage was not intact. There was a grade 2 tear measuring 4 mm. The cartilage was treated with gentle chondroplasty We then inspected the intercondylar notch. The ACL was intact. The PCL was intact. We then inspected the lateral compartment. We inspected the lateral meniscus and the articular cartilage surfaces. Lateral meniscus was intact. Cartilage was intact. We then inspected the patellofemoral compartment. The patella and trochlea were inspected and the articular cartilage was probed. The patellar cartilage was not intact. There was a grade 3 tear measuring 8 mm. The trochlear cartilage was The cartilage was treated with gentle chondroplasty Because there was synovitis out of proportion to the underlying injuries, I felt that a synovial biopsy was indicated to rule out tumour. A biopsy of synovium was sent for permanent specimen for analysis with pathology. At this point all instruments were removed and the knee was drained of fluid. The portal incisions were closed with simple Steri-Strips. A sterile compressive wrap was applied. Patient was then awakened and extubated and brought back to the PACU in stable condition. I was present scrubbed and actively participating for all araujo portions of the surgery. Estimated blood loss is minimal complications are none disposition is to the PACU in stable condition postoperative plan. I will see them back in 10 to 14 days time for suture removal and initiation of physical therapy Complications: None; patient tolerated the procedure well. Disposition: PACU - hemodynamically stable. Condition: stable Ivy Waters [facility] Orders Onlyon 12-07-2022 Orders Only [id number] Emma Rowley 1975 F Date Provider Department Center 12/07/2022 IVY WILKINS MP ORTHO MPORTHO Family History Problem Relation Age of Onset Hypertension Mother Hyperlipidemia Mother Family Status - Relation Status Age at Mother [facility] POCT GLUCOSE METER UNSOLICIT ED RESULTSon 12-07-2022 Glucose [Mass/Vol] 98 mg/dL Normal 70-105 [facility] Comment on above: Result Comment: acle ment Performed By: #### L [id number] ####[facility] ([facility]ER)[address] [place] [address] HPon 12-06-2022 HP History Of Present Illness Emma Rowley is a 47 y.o. male presenting with R knee pain. Past Medical History He has a past medical history of Acute tear of posterior horn of medial meniscus, Allergic rhinitis, Anxiety, Asthma, Depression, Fractures, and Hypertension. Surgical History He has a past surgical history that includes Bunionectomy (Bilateral); Mouth surgery; and Hysterectomy. Social History He reports that he has never smoked. He has never used smokeless tobacco. He reports current alcohol use. He reports that he does not use drugs. Family History Family History Problem Relation Name Age of Onset Hypertension Mother Hyperlipidemia Mother Allergies Duloxetine Medications No medications prior to admission. Review of Systems Last Recorded Vitals Visit Vitals Smoking Status Never Physical Exam Relevant Lab Results No results found for: NA, K, CL, CO2, BUN, CREATININE, GLUCOSE, CALCIUM, ANIONGAP, EGFR, BCR R knee MMT Relevant Imaging Results No image results found. Assessment/Plan Principal Problem: Acute tear of posterior horn of medial meniscus R MM [facility] [id number] 11-29-2022 [id number] NPO after [place] Must have a residential recycle driver to take you home and someone to stay for 24 hours after surgery. No jewelry Hold the prescription meds we spoke about: NONE Take the meds we spoke about w/a sip of water DOS: INHALER, METOPROLOL NAPROXYN PRN Bring insurance card and ID. [facility] Follow-Upon 10-09-2022 Follow-Up [id number] Amrik,1975 M Date Provider Department Center 10/09/2022 IVY WILKINS MP MPOHO Family History Problem Relation Age of Onset Hypertension Mother Hyperlipidemia Mother Family Status - Relation Status Age at Mother Level of Service:23999 [place] OFFICE/OUTPATIENT ESTABLISHED MOD MDM 30-39 MIN (57) Reason for Visit and Comments: Follow-up [[id number]] [facility] Follow-Upon 09-26-2022 Follow-Up [id number] Amrik,1975 M Date Provider Department Center 09/26/2022 IVY WILKINS MP ORTHO MPORTHO No family history on file Level of Service:85531 [place] OFFICE/OUTPATIENT ESTABLISHED MOD MDM 30-39 MIN (GC) Reason for Visit and Comments: Pain [136] [facility] Procedure Visiton 07-03-2022 Procedure Visit [id number] Amrik,1975 M Date Provider Department Center 07/03/2022 IVY WILKINS MP ORTHO MPORTHO No family history on file Level of Service:89530 [place] OFFICE/OUTPATIENT ESTABLISHED LOW [facility] 20-29 MIN (25) Reason for Visit and Comments: Pain [136] [facility] MRI KNEE RT WO CONon 022 MRI KNEE RT WO CON EXAMINATION: MRI KNEE RT WO CON HISTORY: Contusion of right knee COMPARISON: Plain x-ray 06/13/2021 TECHNIQUE: A complete multi-planar MRI was performed. FINDINGS: MEDIAL COMPARTMENT MEDIAL MENISCUS: 2 areas of signal abnormality identified along the posterior aspect of the medial meniscus best visualized on sagittal image 9, coronal image 23 measuring 3 and 3.5 mm in size CARTILAGE: No visible defect. BONES: No marrow pathology, fracture, or significant arthropathy. MCL AND MEDIAL CAPSULE: Normal medial collateral ligament and medial capsule. LATERAL COMPARTMENT LATERAL MENISCUS: No visible tear or significant degeneration. CARTILAGE: No visible defect. BONES: No marrow pathology, fracture, or significant arthropathy. LCL/POSTEROLAT COMPLEX: Normal lateral collateral ligament, fascicles, lateral capsule and ligaments. ANTERIOR COMPARTMENT PATELLA: No marrow pathology, fracture, or significant arthropathy. CARTILAGE: Grade III chondromalacia genu and lateral patellar facet TENDONS: Normal. EFFUSION: None. No synovitis or loose bodies. ACL: Increased signal distal tendon PCL: Normal appearing ligament. MENISCOFEMORAL: Normal meniscofemoral ligaments. OTHER: Negative. IMPRESSION: 2 small areas of signal abnormality posterior to the medial meniscus, I suspect a meniscal tear with small meniscal fragments Grade III chondromalacia of the patella Increased signal distal anterior cruciate ligament suggesting strain Electronically authenticated by: IVY OLVERA Date: 2021-07-18 12:01 [facility] XR SHOULDER RT 2V or >on XR SHOULDER RT 2V or > EXAM: XR SHOULDER RT 2V . HISTORY: Shoulder pain COMPARISON: None. TECHNIQUE: 3 views of the right shoulder were obtained. FINDINGS: There is mild osteoarthritis at the right acromioclavicular joint. No evidence of acute fracture or subluxation. IMPRESSION: No evidence of acute fracture or subluxation. EXAM: XR WRIST RT MIN 3 V. HISTORY: Injury. COMPARISON: None. TECHNIQUE: 3 views of the right wrist were obtained. FINDINGS: Normal bony alignment and joint spaces are preserved without evidence of acute fracture or subluxation. IMPRESSION: No acute fracture or subluxation. EXAM: XR KNEE RT 4V . HISTORY: Injury. COMPARISON: None. TECHNIQUE: 4 views of the right knee were obtained. FINDINGS: There is mild medial compartment joint space narrowing with marginal spurring. Spurring of the tibial spines are present. Marginal spurring is also noted at the patellofemoral compartment. IMPRESSION: 1. No radiographic evidence of acute fracture or subluxation. 2. Mild osteoarthritis at the medial and patellofemoral compartments. EXAM: XR ANKLE LT MIN 3 V HISTORY: Injury COMPARISON: None. TECHNIQUE: 3 views of the left ankle were obtained. FINDINGS: There is no radiographic evidence of acute fracture or subluxation. Plantar calcaneal spur is present. Mild enthesopathic changes at the insertion of the Achilles tendon. IMPRESSION: 1. No acute fracture or subluxation. 2. Mild degenerative changes at the hindfoot. Electronically authenticated by: JESSICA TINOCO Date: 2021-06-14 10:28 Normal [facility] Encounters Encounter Date Encounter Type Care Provider Facility Start: 10-08-2023 End: 10-09-2023 ambulatory Mary Mccarthy Facility:[facility] Start: 06-18-2023 End: 06-19-2023 ambulatory Myrna KRAUSE Facility: [facility] Start: 04-02-2023 ambulatory [facility] Start: 01-29-2023 ambulatory [facility] Start: 01-26-2023 ambulatory Myrna KRAUSE Facility: [facility] Start: 12-29-2022 End: 12-30-2022 ambulatory Myrna KRAUSE Facility: [facility] Start: 12-18-2022 ambulatory [facility] Start: 12-07-2022 End: 12-07-2022 ambulatory [facility] Start: 11-17-2022 ambulatory Myrna KRAUSE Facility: [facility] Start: 10-16-2022 ambulatory Myrna KRAUSE Facility: [facility] Start: 10-09-2022 ambulatory [facility] Start: 09-26-2022 ambulatory [facility] Start: 07-03-2022 ambulatory [facility] Start: 12-08-2021 End: 01-06-2022 ambulatory ROSIO MARIE Facility:[facility] Start: 07-18-2021 End: 07-19-2021 ambulatory ROSIO MARIE Facility:[facility] Start: 06-13-2021 End: 06-14-2021 ambulatory ROSIO MARIE Facility:[facility] Payers Date Payer Category Payer Unknown [id number] 2021 Unknown [id number] 1975 Unknown [id number] 2.16.84 [id number] 1975 Unknown [id number] 2.16.84 [id number] 1975 Unknown [id number] 2.16.84 [id number] 1975 Unknown [id number] 2.16.8 [id number] 1975 Unknown [id number] 2.16.8 [id number] 1975 Unknown [id number] 2.16.8 [id number] 1975 Unknown [id number] 2.16.8 [id number] 1975 Unknown [id number] 2.16.8 [id number] 1975 Unknown [id number] 2.16.8 [id number] 1975 Unknown [id number] 2.16.8 [id number] 1961 Unknown [id number] Self-pay [id number] Unknown Self Pay [id number] Social History Date Type Detail Facility Tobacco smoking stat [facility] Unknown if ever smoked [facility] Start: 1975 Sex Assigned At Female Rosaline yañez [facility] Goals Date Patient Goal Desired Activity /State Clinical Notes 07-03-2022 to 05-11-2023 Note Date & Type Note Facility 05-11-2023 Note u [facility] 04-02-2023 Note ------ Attestation signed by Ivy Waters MD at 04/02/2023 1:26 PM I personally saw and examined the patient on the same date of service as resident/fellow . I discussed the findings and therapeutic plan with the resident/fellow . I agree with the documentation, except for any edits/updates below. Teaching Physician's Revisions: No revisions MRI of the left knee demonstrates thinning of the articular cartilage but no discrete lesions. No meniscal tear or ligamentous injury. 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 She has activity related bilateral knee pain. I would recommend at this point a functional capacity evaluation to see if she is able to return to this job without restrictions. If not then I think she will need vocational rehab for retraining for a different occupation ------ Orthopedic Surgery Subjective Follow-up of the Right Knee 04/02/23 Emma Rowley is a 47 y.o. female presenting for evaluation of left knee pain. Patient reports that she has been having on going left knee pain that worsens when she is lifting items or bending down on her knees. She notes that this has been an ongoing issue with both of her knees that has now begun to worsen. 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 Review of Systems positive for: Joint pain Patient History Past Surgical History: Procedure Laterality Date BUNIONECTOMY Bilateral HYSTERECTOMY MOUTH SURGERY ORAL Past Medical History: Diagnosis Date Acute tear of posterior horn of medial meniscus RIGHT Allergic rhinitis Anxiety Asthma Delayed emergence from general anesthesia Depression Fractures UPPER MOUTH Hypertension Objective Knee Musculoskeletal Exam Inspection Right Right knee inspection is normal. Left Left knee inspection is normal. Palpation Right Right knee palpation is unremarkable. Left Increased warmth: none Masses: none Crepitus: none Tenderness: present Neurovascular Right Right knee neurovascular exam is normal. Left Left knee neurovascular exam is normal. General Constitutional: appears stated age Scleral icterus: no Labored breathing: no Psychiatric: normal mood and affect Neurological: alert Skin: intact Lymphadenopathy: none Imaging personally reviewed: MRI from outside facility reviewed that showed: Thinning of meniscal cartilage and increased inflammation of all compartments of the left knee. Assessment/Plan Emma Rowley is a 47 y.o. female left knee pain. - Discussed that with the patient's concerns for continuing her job and not wanting to proceed with surgery at this time we will refer her for a functional capacity evaluation. - RTC as needed Erickson Castelan, MS3 [facility] 04/02/23 11:17 [facility] 01-29-2023 Note ------ Attestation signed by Ivy Waters MD at 01/29/2023 1:15 PM I personally saw and examined the patient on the same date of service as resident/fellow . I discussed the findings and therapeutic plan with the resident/fellow . I agree with the documentation, except for any edits/updates below. Teaching Physician's Revisions: No revisions ------ Orthopedic Surgery Subjective 12/07/2022 Right Knee Extensive Synovectomy, Right Knee Biopsy, Right Knee Patellar Chondroplasty - Right 01/29/23 Patient reports weakness and pain in the right knee and some in the left knee. 12/19/22 Doing well Patient History Past Surgical History: Procedure Laterality Date BUNIONECTOMY Bilateral HYSTERECTOMY MOUTH SURGERY ORAL Past Medical History: Diagnosis Date Acute tear of posterior horn of medial meniscus RIGHT Allergic rhinitis Anxiety Asthma Delayed emergence from general anesthesia Depression Fractures UPPER MOUTH Hypertension Objective Exam: - Incision clean, dry, and intact. No drainage or erythema - Reasonable post-surgical ROM, swelling, and tenderness - Sensation grossly intact distally - Brisk capillary refill Assessment/Plan Emma Rowley is a 47 y.o. year old female s/p Right Knee Extensive Synovectomy, Right Knee Biopsy, Right Knee Patellar Chondroplasty - Right (12/07/2022) Continue PT Medrol Dosepak for inflammation Cindy Cartagena, M3 [facility] 12-18-2022 Note ys [facility] 12-18-2022 Note Orthopedic Surgery Subjective 12/07/2022 Right Knee Extensive Synovectomy, Right Knee Biopsy, Right Knee Patellar Chondroplasty - Right 12/18/22 Doing well Patient History Past Surgical History: Procedure Laterality Date BUNIONECTOMY Bilateral HYSTERECTOMY MOUTH SURGERY ORAL Past Medical History: Diagnosis Date Acute tear of posterior horn of medial meniscus RIGHT Allergic rhinitis Anxiety Asthma Delayed emergence from general anesthesia Depression Fractures UPPER MOUTH Hypertension Objective Exam: - Incision clean, dry, and intact. No drainage or erythema - Reasonable post-surgical ROM, swelling, and tenderness - Sensation grossly intact distally - Brisk capillary refill Assessment/Plan Emma Rowley is a 47 y.o. year old female s/p Right Knee Extensive Synovectomy, Right Knee Biopsy, Right Knee Patellar Chondroplasty - Right (12/07/2022) Ok to start PT [facility] 12-07-2022 Note Emma had surgery tod ay, and my resident ordered postop pain meds. I was called because I was told [facility] says I have to write for it. [facility] 12-07-2022 Note Patient: Emma prajapati Procedure Summary Date: 12/07/22 Room / Location: [address] OR Anesthesia Start: 906 Anesthesia Stop: 958 Procedure: RIGHT KNEE EXTENSIVE SYNOVECTOMY, RIGHT KNEE BIOPSY, RIGHT KNEE PATELLAR CHONDROPLASTY (Right: Knee) Diagnosis: Synovitis of right knee Chondromalacia, knee, right (Acute tear of posterior horn of medial meniscus [S83.249A]) Surgeons: Ivy Waters MD Responsible Provider: Renea Ruelas MD Anesthesia Type: general ASA Status: 2 Anesthesia Type: general Vitals Value Taken Time BP 144/81 12/07/22 1030 Temp 36 ???C (96.8 ???F) 12/07/22 1000 Pulse 73 12/07/22 1030 Resp 18 12/07/22 1030 SpO2 100 % 12/07/22 1030 Anesthesia Post Evaluation Patient location during evaluation: PACU Patient participation: complete - patient participated Level of consciousness: awake and awake and alert Pain management: adequate Airway patency: patent Two or more strategies used to mitigate risk of obstructive sleep apnea Cardiovascular status: acceptable Respiratory status: acceptable Hydration status: acceptable Patient is hemodynamically stable and is able to be discharged from PACU per anesthesia protocol. No notable events documented. [facility] 12-07-2022 Note Airway Date/Time: 12/07/2022 9:14 AM Urgency: elective General Information and Staff Patient location during procedure: OR Resident/DIRECTOR ENERGY/CAA: Jesus Bucio MD Performed: other anesthesia staff Learner assisted: Medical Student Umang Indications and Patient Condition Indications for airway management: anesthesia Spontaneous Ventilation: absent Sedation level: deep Preoxygenated: yes Mask difficulty assessment: 1 - vent by mask Final Airway Details Final airway type: endotracheal airway Successful airway: ETT Cuffed: yes Successful intubation technique: video laryngoscopy Facilitating devices/methods: intubating stylet Endotracheal tube insertion site: oral Blade: Spears Blade size: #3 ETT size (mm): 7.5 Cormack-Lehane Classification: grade I - full view of glottis Placement verified by: chest auscultation and capnometry Measured from: lips ETT to lips (cm): 21 Number of attempts at approach: 1 Number of other approaches attempted: 0 [facility] 12-07-2022 Note Patient: Emma prajapati Procedure Information Date/Time: 12/07/22 0915 Procedure: MENISCECTOMY, KNEE, ARTHROSCOPIC (Right: Knee) Location: [facility] OR [address] [place] [address] OR Surgeons: Ivy Waters MD Relevant Problems No relevant active problems Clinical information reviewed: Tobacco Allergies Meds Med Hx Surg Hx Fam Hx Soc Hx Physical Exam Airway Mallampati: I TM distance: >3 FB Neck ROM: full Cardiovascular - normal exam Rhythm: regular Rate: normal Comments: >4 mets, on metoprolol Dental - normal exam Pulmonary Breath sounds clear to auscultation Comments: Asthma- mild controlled with albuterol as needed Abdominal - normal exam Abdomen: soft Bowel sounds: normal Other findings: On tizanidine, seroquel-toook last night. Took aleve, albuterol, metoprolol this AM Anesthesia Plan ASA 2 general The patient is not a current smoker. Patient was not previously instructed to abstain from smoking on day of procedure. Patient did not smoke on day of procedure. intravenous induction Postoperative administration of opioids is intended. Anesthetic plan and risks discussed with patient. Use of blood products discussed with patient who consented to blood products. Plan discussed with resident. Additional Equipment Requests [facility] 10-09-2022 Note Orthopedic Surgery Subjective Follow-up of the Right Knee 10/09/22 Emma Rowley is a 47 y.o. male presenting for evaluation of right knee pain. She had a [facility] injury with a fall at work on 06/13/2021. MRI demonstrates a radial tear of the posterior horn medial meniscus. This has been approved as a diagnosis. She returns today after C9 has also been approved for right knee arthroscopy with partial medial meniscectomy. Consent obtained today. 09/26/22 Emma returns today for follow-up after her corticosteroid injection 07/03/2022. She states that this did not provide her any relief and she is continuing to have similar symptoms. 07/03/22 Emma Rowley is a 47 y.o. year old male presenting for evaluation of R knee pain. She is approved for CSI by [facility]. ([place]) 11/28/21: Patient is a 46 yo female ([facility]) who presents for follow up for her right knee pain after a work injury last May. She was not able to get the CSI or PT orders we planned for at her last visit, she was not sure if these were approved or not. She has tried Meloxicam did not help much. She rates the pain as 4/10 and is not improved since her last visit. She says the pain is worse with movement. She has not been working since the injury 08/08/21: Ms. Rowley is a 46 F presenting to clinic as a new patient for complaint of R knee pain after fall at work 06/13/21. She presents with her who assists with history and course of injury. She also brings with her an MRI of her right knee from outside facility which was reviewed at this time and was read as possible small posterior medial meniscus tear. She endorses global knee pain worse with weight bearing and ROM. She also endorses occasional giving out while ambulating. Denies numbness/tingling/weakness in the leg. She has used naproxen for pain relief with mild improvement. She has not tried PT or CSI. Review of Systems unremarkable aside from what is noted in HPI Joint pain Patient History Past Surgical History: Procedure Laterality Date BUNIONECTOMY Bilateral HYSTERECTOMY MOUTH SURGERY History reviewed. No pertinent past medical history. Objective General: Body mass index is 37.28 kg/m???. No acute distress, comfortable Respiratory: Unlabored breathing with normal rate, no cough Cardiovascular: Warm well perfused extremities Psych: Appropriate mood behavior R knee with no deformity ROM full Strength 5/5 No instability +McMurrays LT intact CR<2sec L knee with no deformity ROM full Strength 5/5 No instability -Rubio's LT intact CR<2sec Previous MRI personally reviewed in [place] demonstrates a tear of the posterior horn of the medial meniscus Assessment/Plan Emma Rowley is a 47 y.o. year old female with Acute tear of posterior horn of medial meniscus Plan right knee arthroscopy with partial medial meniscectomy [facility] 09-26-2022 Note ------ Attestation signed by Ivy Waters MD at 09/26/2022 1:09 PM I personally saw and examined the patient on the same date of service as resident/fellow . I discussed the findings and therapeutic plan with the resident/fellow . I agree with the documentation, except for any edits/updates below. Teaching Physician's Revisions: No revisions December is MRI demonstrates a radial tear of the body of the medial meniscus. At this point she has failed all conservative treatment. My recommendation would be for right knee arthroscopy with partial medial meniscectomy. We will submit a C9 for this ------ Orthopedic Surgery Subjective Pain of the Right Knee 09/26/22December returns today for follow-up after her corticosteroid injection 07/03/2022. She states that this did not provide her any relief and she is continuing to have similar symptoms. 07/03/22 Emma Rowley is a 47 y.o. year old male presenting for evaluation of R knee pain. She is approved for CSI by [facility]. ([facility]) 11/28/21: Patient is a 46 yo female ([facility]) who presents for follow up for her right knee pain after a work injury last May. She was not able to get the CSI or PT orders we planned for at her last visit, she was not sure if these were approved or not. She has tried Meloxicam did not help much. She rates the pain as 4/10 and is not improved since her last visit. She says the pain is worse with movement. She has not been working since the injury 08/08/21: Ms. Rowley is a 46 F presenting to clinic as a new patient for complaint of R knee pain after fall at work 06/13/21. She presents with her who assists with history and course of injury. She also brings with her an MRI of her right knee from outside facility which was reviewed at this time and was read as possible small posterior medial meniscus tear. She endorses global knee pain worse with weight bearing and ROM. She also endorses occasional giving out while ambulating. Denies numbness/tingling/weakness in the leg. She has used naproxen for pain relief with mild improvement. She has not tried PT or CSI. Review of Systems unremarkable aside from what is noted in HPI Joint pain Patient History Past Surgical History: Procedure Laterality Date BUNIONECTOMY Bilateral HYSTERECTOMY MOUTH SURGERY History reviewed. No pertinent past medical history. Objective General: Body mass index is 37.28 kg/m???. No acute distress, comfortable Respiratory: Unlabored breathing with normal rate, no cough Cardiovascular: Warm well perfused extremities Psych: Appropriate mood behavior R knee with no deformity ROM full Strength 5/5 No instability +McMurrays LT intact CR<2sec L knee with no deformity ROM full Strength 5/5 No instability -Rubio's LT intact CR<2sec Previous MRI personally reviewed in [place] demonstrates a tear of the posterior horn of the medial meniscus Assessment/Plan Emma Rowley is a 47 y.o. year old male with Acute tear of posterior horn of medial meniscus At this point given the patient has failed all conservative modalities, we would recommend surgical treatment in the form of arthroscopy with medial meniscal repair versus debridement. We will submit a C9 for this. We will plan to see her back in clinic after approval to schedule surgery. Nicko Baker MD Orthopedic Surgery, PGY-5 Pager: [phone] 09/26/22 11:02 AM By using the attestations below, the signing clinician agrees that I have read and verify that the documentation has been personally reviewed by me and ensure that the documentation accurately reflects the encounter. GC: I personally saw this patient on the day of the encounter, performed the araujo portion(s) of the service and participated in the management and confirm the resident's documentation. Please note there may be an additional personal documentation from me. [facility] 07-03-2022 Note Orthopedic Surgery Subjective Pain of the Right Knee 07/03/22 ([place]) Emma Rowley is a 47 y.o. year old male presenting for evaluation of R knee pain. She is approved for CSI by [facility]. ([place]) 11/28/21: Patient is a 46 yo female ([facility]) who presents for follow up for her right knee pain after a work injury last May. She was not able to get the CSI or PT orders we planned for at her last visit, she was not sure if these were approved or not. She has tried Meloxicam did not help much. She rates the pain as 4/10 and is not improved since her last visit. She says the pain is worse with movement. She has not been working since the injury 08/08/21: Ms. Rowley is a 46 F presenting to clinic as a new patient for complaint of R knee pain after fall at work 06/13/21. She presents with her who assists with history and course of injury. She also brings with her an MRI of her right knee from outside facility which was reviewed at this time and was read as possible small posterior medial meniscus tear. She endorses global knee pain worse with weight bearing and ROM. She also endorses occasional giving out while ambulating. Denies numbness/tingling/weakness in the leg. She has used naproxen for pain relief with mild improvement. She has not tried PT or CSI. Review of Systems unremarkable aside from what is noted in HPI Joint pain Patient History Past Surgical History: Procedure Laterality Date BUNIONECTOMY Bilateral HYSTERECTOMY MOUTH SURGERY History reviewed. No pertinent past medical history. Objective General: Body mass index is 37.28 kg/m???. No acute distress, comfortable Respiratory: Unlabored breathing with normal rate, no cough Cardiovascular: Warm well perfused extremities Psych: Appropriate mood behavior R knee with no deformity ROM full Strength 5/5 No instability +McMurrays LT intact CR<2sec L knee with no deformity ROM full Strength 5/5 No instability -Rubio's LT intact CR<2sec Assessment/Plan Emma Rowley is a 47 y.o. year old male with Acute tear of posterior horn of medial meniscus Plan R Knee CSI Large Joint: R knee on 07/03/2022 1:50 PM Indications: pain Details: 21 G needle, anterolateral approach Medications: 4 mL lidocaine 10 mg/mL (1 %); 20 mg triamcinolone acetonide 10 mg/mL Outcome: tolerated well, no immediate complications The right knee joint was prepped out in a sterile fashion. We used ethyl chloride for topical anesthesia. After consent was obtained, we injected the joint using a 21-gauge needle and delivered 20mg of Kenalog mixed with 4cc of lidocaine 1%. The skin was cleaned and dried and dressed with a sterile dry dressing. Procedure was tolerated well [facility] Evaluation note No Assessments Information Avail able [facility] Summary Purpose Family History No Family History Records FoundNo Family History Records FoundNo Family History Records Found Advance Directives No Advanced Directives Records FoundNo Advanced Directives Records FoundNo Advanced Directives Records Found Additional Source Comments INFORMATION SOURCE (unrecogn ized section and content) DATE CREATED AUTHOR 01/18/2022 [facility] DATE CREATED AUTHOR AUTHOR'S ORGANIZ ATION 06/29/2023 [facility] DATE CREATED AUTHOR AUTHOR'S ORGANIZ ATION 10/16/2023 [facility] FOR RECORDS PERTAINING TO PATIENTS WHO ARE OR HAVE BEEN ENROLLED IN A CHEMICAL DEPENDENCY/SUBSTANCEABUSE PROGRAM, SOME INFORMATION MAY BE OMITTED. This clinical summary was aggregated from multiple sources. Caution should be exercised in using it in the provision of clinical care. This summary normalizes information from multiple sources, and as a consequence, information in this document may materially change the coding, format and clinical context of patient data. In addition, data may be omitted in some cases. CLINICAL DECISIONS SHOULD BE BASED ON THE PRIMARY CLINICAL RECORDS. [facility] provides no warranty or guarantee of the accuracy or completeness of information in this document.
== END 2023-10-18 11:36 | disposition home or self-care (01) ==
LOC: MAMMO 11:36
PROVIDERS: PCP Family Medicine
DX: Z12.31 Encounter for screening mammogram for malignant neoplasm of breast (principal); Z80.3 Family history of malignant neoplasm of breast; Z80.7 Family history of other malignant neoplasms of lymphoid, hematopoietic and related tissues; Z80.42 Family history of malignant neoplasm of prostate; Z80.8 Family history of malignant neoplasm of other organs or systems
CPT/HCPCS: 77063; 77067

== ENCOUNTER 2024-01-10 09:55 | Outpatient (OUT) | payer OTHER, SELFPAY ==
--- NOTE | 2024-01-10 09:59 | MR_ITS ---
[place] [id number] Patient Name: MEMO PERSAUD MRN: [id number] date: 1975 Sex: F Assigned Patient Location: MRI Current Patient Location: MRI Accession/Order Number: [id number] Exam Date: 01/10/2024 10:15 Report Date: 01/10/2024 11:12 At the request of: IVY TIRADO Procedure: MR knee LT wo con EXAMINATION: MR knee LT wo con HISTORY: Acute left knee pain COMPARISON: 02/23/2023 TECHNIQUE: A complete multi-planar MRI was performed. FINDINGS: MEDIAL COMPARTMENT MEDIAL MENISCUS: No visible tear or significant degeneration. CARTILAGE: Moderate chondromalacia BONES: Marginal osteophyte formation. Osteochondral injury/edema measuring 12.6 mm sagittal image 19 medial femoral condyle MCL AND MEDIAL CAPSULE: Normal medial collateral ligament and medial capsule. LATERAL COMPARTMENT LATERAL MENISCUS: No visible tear or significant degeneration. CARTILAGE: Moderate chondromalacia BONES: Areas of subchondral edema in the anterior lateral femoral condyle LCL/POSTEROLAT COMPLEX: Normal lateral collateral ligament, fascicles, lateral capsule and ligaments. ANTERIOR COMPARTMENT PATELLA: Moderate osteoarthritis with marginal osteophyte formation subchondral edema CARTILAGE: Moderate chondromalacia TENDONS: Normal. EFFUSION: None. No synovitis or loose bodies. ACL: Normal appearing ligament. PCL: Normal appearing ligament. MENISCOFEMORAL: Normal meniscofemoral ligaments. OTHER: Negative. 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
--- OUTSIDE RECORDS SUMMARY | 2024-01-10 10:02 | XMS_ITS | CCD ---
Author Organization [facility] Care Team Providers Care Apple Sorter Name Role Phone ROSIO MARIE Admitting Unavailable CYNTHIA, ROSIO Attending Unavailable CYNTHIA, ROSIO Admitting Unavailable DR IVY OLVERA V Consulting Unavailable CYNTHIA, ROSIO Attending Unavailable CYNTHIA, ROSIO Consulting Unavailable CYNTHIA, ROSIO Admitting Unavailable CYNTHIA, ROSIO Attending Unavailable CYNTHIA, ROSIO Consulting Unavailable JESSICA TINOCO Consulting Unavailable DR MYRNA KRAUSE Consulting Unavailable Myrna KRAUSE Attending Unavailable Mary Mccarthy Attending Unavailable Mary Mccarthy Admitting Unavailable Mary Mccarthy Attending Unavailable Myrna KRAUSE Attending Unavailable Myrna KRAUSE Attending Unavailable Myrna KRAUSE Attending Unavailable CELESTINO, IVY Attending Unavailable ROSIO MARIE Referring Unavailable CELESTINO, IVY Attending Unavailable CELESTINOIVY Referring Unavailable CELESTINO, IVY Attending Unavailable CELESTINO, IVY Attending Unavailable Allergies Allergy Classification Reported Allergen(s) Allergy Type Date of Onset Reaction(s) Facility Unclassified (1 source) Allergy to substance [facility] (1 source) DULoxetine; Translations: [Cymbalta] Drug Allergy [facility] Repository (1 source) DULoxetine; Translations: [DULOXETINE] Drug Allergy 07-03-[address] [facility] Repository Problems Active Problems Problem Classification Problem Date Documented Da te Episodic/Chronic Other non-traumatic joint disorders (2 sources) Pain in left knee; Translations: [Pain in left knee] Onset: 10-09-2022 Episodic Past or Other Problems Problem Classification Problem Date Documented Da te Episodic/Chronic Joint disorders and dislocations; trauma-related (6 sources) Other tear of medial meniscus, current injury, right knee, subsequent encounter; Translations: [Other tear of medial meniscus, current injury, unspecified knee, initial encounter] Onset: 12-08-2021 Episodic Other non-traumatic joint disorders (4 sources) [...] Test Name Value Interpretation Reference Range Facility 36on 12-11-2023 36 Notified pt that it will be faxed once when approval is received [facility] 36 Patient would like h er MRI and c-9 for approval faxed to [phone]. So far her c-9 is not in yet. Normal [facility] Office Visiton 12-11-2023 Follow-up visit [id number] Emma Rowley 1975 F Date Provider Department Center 12/11/2023 IVY WILKINS ORTHO MPORTHO Family History Problem Relation Age of Onset Hypertension Mother Hyperlipidemia Mother Family Status - Relation Status Age at Mother Level of Service:21541 PA OFFICE/OUTPATIENT ESTABLISHED LOW MDM 20 MIN Reason for Visit and Comments: Pain [136] Normal [facility] Outside Mammographyon 2023 Outside Mammography [id number] 0TIFF Normal [facility] RAD - CT Reporton 10-23-2023 RAD - CT Report [id number] 0TIFF Normal [facility] Lab Reportson 10-15-2023 Lab Reports [id number] 0TIFF [facility] RAD - CT Reporton 10-12-2023 RAD - CT Report [id number]#1.0 0TIFF Normal [facility] C Urineon 10-10-2023 Bacteria identified Cx Nom (U) Microbiology PROCEDURE: Urine Culture [R1] SOURCE: U Cath BODY SITE: COLLECTED DATE/TIME: 10/08/2023 17:02 EDT RECEIVED DATE/TIME: 10/08/2023 22:35 EDT START DATE/TIME: 10/08/2023 22:35 EDT FREE TEXT SOURCE: Fabio MSN, SALES AND MARKETING INTERN-INTERNET MERCHANT, aFbio MSN, SALES AND MARKETING INTERN-INTERNET MERCHANT, Mary Liao FINAL REPORTS Final Report [] Verified Date/Time: 10/10/2023 07:24 EDT 4,000 cfu/ml Mixed skin contaminants Chantal not indicative of a Cath specimen Performing Locations R1: This test was performed at: [facility], [address] [place] [address], [facility]- , , [facility] Comment on above: Performed By: #### 4 [id number], [id number] ####[facility] [address] [place] [address] Ambulatory Visit Summaryon 0 10-08-2023 Ambulatory Visit Summary AMRIKDecember :1975 MRN:[id number] Visit Date:10/08/2023 Ambulatory Visit Instructions Your Diagnosis [...] Your Care Team Attending Physician - Fabio MSN, SALES AND MARKETING INTERN-INTERNET MERCHANT, Mary Liao Primary Care Physician - NONE, XXXX This Is Your Medications List sulfamethoxazole-trime thoprim (Bactrim D.S. 800 mg-160 mg Tab) Contact prescribing physician if questions or concerns albuterol (Ventolin HFA 90 mcg/inh Aerosol) fluticasone nasal (fluticasone Nasal 0.05 mg/inh [place]) lisinopril (lisinopril 10 mg Tab) meclizine (meclizine [...] the Following Appointments Follow Up with Fabio MSN, SALES AND MARKETING INTERN-INTERNET MERCHANT, Mary Liao When: Only if needed Comments: please fax mammogram to [facility] thank you Where: [address] [place] [phone] Medications What How Much When Instructions New sulfamethoxazole-trime thoprim (Bactrim D.S. 800 mg-160 mg Tab) 1 Tablets By Mouth Every 12 hours Duration: 7 Days Printed Prescription Unchanged albuterol (Ventolin HFA 90 mcg/ inh Aerosol) 2 Puffs Inhalation 4 times a day Contact prescribing physician if questions or concerns Unchanged fluticasone nasal (fluticasone Nasal 0.05 mg/ inh [place]) 2 Sprays Nasal Inhalation Every day each [...] salt (more content not included)... Normal [facility] Family Medicine Office/Clini c Noteon 10-08-2023 [...] get an accurate reading. She was taking edmq-eqj-vkkgzeo medication to help with the symptoms. I [...] requesting it to be sent to the [facility] Ordered: CBC w/ Auto Diff Comprehensive Metabolic Panel Lipid Panel MA Mamm Screen w/CAD if perf and 3D Yassine 5. Lipid screening (Z13.220: Encounter for screening for lipoid disorders) She is due for her annual blood work we will go ahead and get those ordered she can have them done at the [facility] per her request we will call with results Ordered: CBC w/ Auto Diff Comprehensive Metabolic Panel Lipid Panel MA Mamm Screen w/CAD if perf and 3D Yassine 6. Diabetes mellitus screening (Z13.1: Encounter for screening for diabetes mellitus) See #5 Ordered: CBC w/ Auto Diff Comprehensive Metabolic Panel L (more content not included)... Normal [facility] Comment on above: Result Comment: Elec tronically Signed By: Fabio ANTONIO, SALES AND MARKETING INTERN- Mary GRAHAM\.br\Date and Time Signed: 10/08/23 21:32 [...] Seasoni (more content not included)... Normal [facility] UA with Cult Rflxon 10-08-19 24 Color (U) Dark-Yellow Abnormal Yellow [facility] Comment on above: Result Comment: Micr oscopic readings are only performed on those samples that meet specific criteria set forth by [facility]. Performed By: #### 4 [id number], [id number] ####[facility] [address] [place] [address] Glucose (U) [Mass/Vol] Negative Normal Negative [facility] Comment on above: Performed By: #### 4 [id number], [id number] ####[facility] [address] [place] [address], [place] [address] Ketones Ql (U) Negative Normal Negative [facility] Comment on above: Performed By: #### 4 [id number], [id number] ####[facility] [address] [place] [address] UA Blood Negative Normal Negative [facility] Comment on above: Performed By: #### 4 [id number], [id number] ####[facility] [address] [place] [address] UA Bili 1+ mg/dL Abnormal Negative [facility] Comment on above: Performed By: #### 4 [id number], [id number] ####[facility] [address] [place] [address] UA Clarity Clear Normal Clear [facility] Comment on above: Performed By: #### 4 [id number], [id number] ####[facility] [address] [place] [address], [place] [address] UA Leuk Est Negative Normal Negative [facility] Comment on above: Performed By: #### 4 [id number], [id number] ####[facility] [address] [place] [address] UA Mucous Negative Normal Negative [facility] Comment on above: Performed By: #### 4 [id number], [id number] ####[facility] [address] [place] [address] UA Nitrite 1+ mg/dL Abnormal Negative [facility] Comment on above: Performed By: #### 4 [id number], [id number] ####[facility] [address] [place] [address] UA pH 6.0 Invalid Interpretation Code 5.0-9.0 [facility] Comment on above: Performed By: #### 4 [id number], [id number] ####[facility] [address] [place] [address] UA Protein Negative Normal Negative [facility] Comment on above: Performed By: #### 4 [id number], [id number] ####[facility] [address] [place] [address] UA Spec Grav 1.020 Invalid Interpretation Code 1.005-1.030 [facility] Comment on above: Performed By: #### 4 [id number], [id number] ####[facility] [address] [place] [address] UA Squam Epithelial 5-8 Abnormal 0-2 [facility] Comment on above: Performed By: #### 4 [id number], [id number] ####[facility] [address] [place] [address], [place] [address] UA Urobilinogen 3 mg/dL Abnormal Negative [facility] Comment on above: Performed By: #### 4 [id number], [id number] ####[facility] [address] [place] [address] UA WBC 0-5 Normal 0-5 [facility] Comment on above: Performed By: #### 4 [id number], [id number] ####[facility] [address] [place] [address] UA Spec Desc Clean Catch Normal [facility] Comment on above: Performed By: #### 4 [id number], [id number] ####[address] [address] Physician Referralon 023 Physician Referral [id number] 0TIFF Normal [facility] Ambulatory Visit Summaryon 1 08-19-2022 Ambulatory [...] List fluticasone nasal (fluticasone Nasal 0.05 mg/inh [place]) lisinopril (lisinopril 10 mg Tab) Contact prescribing [...] Schedule the Following Appointments Follow Up with Myrna KRAUSE MD, FAAFP, [facility] When: Comments: see provider 6mo. all orders are outside Where: Medications What How Much When Instructions Changed fluticasone nasal (fluticasone Nasal 0.05 mg/ inh [place]) 2 Sprays Nasal Inhalation Every day each nostril Pickup at [id number] Unchanged lisinopril (lisinopril 10 mg Tab) 1 Tablets By Mouth Every day Pickup at [facility] Home Delivery Unchanged albuterol (Ventolin HFA 90 [...] physician if questions or concerns Pharmacy Information [facility] Home Delivery: [address] [place], [place] [id number] [phone] [facility][id number]: [address] [place], [place] [phone] Medications and Immunizations Administered Not Given influenza [...] the thyro (more content not included)... Normal [facility] Family Medicine Office/Clini c Noteon 06-18-2023 Family Medicine Office/Clinic Note Chief Complaint 6 Month Htn F/u . needs lisinopril refilled. send to [facility]. 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 She does not feel completely rested in [...] plugged. She used hydrogen drops and an direct support worker. With no relief it has been miserable [...] Daily, 3 EA, Refill(s) 1, each nostril, [id number], 169, cm, 06/18/23 11:00:00 EST, Height/Length Dosing, 113.2, kg, 06/18/23 11:00:00 EST, Weight Dosing lisinopril, 10 mg = 1 tab(s), Oral, Daily, # 90 tab(s), Refills(s) 1, Pharmacy: [facility], 169, cm, 06/18/23 11:00:00 EST, Height/Length Dosing, 113 (more content not included)... Normal [facility] Comment on above: Result Comment: Elec tronically Signed By: NELIDA MILIAN FAAFP, Myrna Case\.br\Date and Time Signed: 06/18/23 13:06 [...] Follow these instructions at home: ? Take tiuy-hca-rikkkgq and prescription medicines only as told by [...] provider. Document Revised: 07/04/2022 Document Reviewed: 07/04/2022 [employer] Patient Education ? 2022 [employer] [facility] Orders Onlyon 05-11-2023 Orders Only [id number] 1975 Date Provider Department [place] 05/11/2023 PRASHANT EUCEDA MP Family History Problem Relation Age of Onset Hypertension Mother Hyperlipidemia Mother Family Status - Relation Status Age at Mother [facility] Follow-Upon 04-02-2023 Follow-Up [id number] Amrik1975 Provider Department [place] 04/02/2023 IVY WILKINS MP Family History Problem Relation Age of Onset Hypertension Mother Hyperlipidemia Mother Family Status - Relation Status Age at Mother Level of Service:38984 PA OFFICE/OUTPATIENT ESTABLISHED LOW MDM 20-29 MIN Reason for Visit and Comments: Follow-up [685149] [facility] Office Visiton 01-29-2023 Follow-up visit [id number] Amrik,December1975 Date Provider Department [place] 01/29/2023 IVY WILKINS MP Family History Problem Relation Age of Onset Hypertension Mother Hyperlipidemia Mother Family Status - Relation Status Age at Mother Level of Service:04937 PA POSTOP FOLLOW UP VISIT RELATED TO ORIGINAL PX Reason for Visit and Comments: Pain [136] Normal [facility] Ambulatory Visit Summaryon 0 12-29-2022 Ambulatory Visit Summary EMMA ROWLEY :1975 Visit Date:12/29/2022 Ambulatory Visit Instructions Your [...] Aerosol) fluticasone nasal (fluticasone 0.05 mg/inh Nasal [place]) meclizine (meclizine 25 mg Tab) metoprolol (metoprolol [...] Follow-Up Appointments Sunday 1:20 PM EDT With: Myrna KRAUSE MD, FAAFP Where: [facility] [place] Normal [facility] Family Medicine Office/Clini c Noteon 12-29-2022 Family Medicine Office/Clinic Note Chief Complaint Pt here for 6 month check up room 3 History of Present Illness Emma had right knee arthroscopy on 12/07/2022 at [facility] over 1 year from the episode at work where she injured her knee. She had blood work done prior to that at [facility] which was reassuring and otherwise normal. [...] week(s), # 4 EA, Refills(s) 0, Pharmacy: [facility], 169, cm, 12/29/22 8:32:00 EDT, Height/Length [...] Daily, # 90 tab(s), Refills(s) 0, Pharmacy: [facility], 169, cm, 12/29/22 8:32:00 EDT, Height/Length Dosing, 112, kg, 12/29/22 8:32:00 EDT, Weight Dosing Portions of this record may have been created with (more content not included)... Normal [facility] Comment on above: Result Comment: Elec [...] Follow these instructions at home: ? Take heji-mvm-ldoqoja and prescription medicines only as told by [...] provider. Document Revised: 07/04/2022 Document Reviewed: 07/04/2022 [employer] Patient Education ? 2022 [employer] [facility] Consultation Noteon 12-20-19 23 Consultation Note [id number] 0CD:127 Normal [facility] Office Visiton 12-18-2022 Follow-up visit [id number] Emma Rowley 1975 F Date Provider Department Center 12/18/2022 IVY WILKINS MP ORTHO MPORTHO Family History Problem Relation Age of Onset Hypertension Mother Hyperlipidemia Mother Family Status - Relation Status Age at Mother Level of Service:67568 PA POSTOP FOLLOW UP VISIT RELATED TO ORIGINAL PX Reason for Visit and Comments: Follow-up [288257] Normal [facility] 36on 12-14-2022 36 Pt notified that biopsy was benign Normal [facility] MRI KNEE RT WO CONon 022 MRI KNEE RT WO CON EXAMINATION: MRI KNE E RT WO CON HISTORY: Contusion of right [...] by: IVY OLVERA Date: 2021-07-18 12:01 Normal [facility] XR SHOULDER RT 2V or >on [...] by: JESSICA TINOCO Date: 2021-06-14 10:28 Normal [facility] Encounters Encounter Date Encounter Type Care Provider Facility Start: 12-11-2023 End: 12-12-2023 ambulatory [facility] Start: 10-08-2023 End: 10-09-2023 ambulatory Mary TomIvan Fabio Facility:[facility] Start: 06-18-2023 End: 06-19-2023 ambulatory Myrna KRAUSE Facility: [facility] Start: 04-02-2023 ambulatory [facility] Start: 01-29-2023 ambulatory [facility] Start: 01-26-2023 ambulatory Myrna KRAUSE Facility: [facility] Start: 12-29-2022 End: 12-30-2022 ambulatory Myrna KRAUSE Facility: [place] [facility] Start: 12-18-2022 ambulatory [facility] Start: 11-17-2022 ambulatory Myrna KRAUSE Facility: [facility] Start: 12-08-2021 End: 01-06-2022 ambulatory ROSIO MARIE Facility: Start: 07-18-2021 End: 07-19-2021 ambulatory ROSIO CYNTHIA Facility:[facility] Start: 06-13-2021 End: 06-14-2021 ambulatory ROSIO CYNTHIA Facility:[facility] Payers Date Payer Category Payer Unknown [id number] 1975 Unknown [id number] 2.16.84 [id number] 1975 Unknown [id number] 2.16.84 [id number] 1975 Unknown [id number] 2.16.84 [id number] 1975 Unknown [id number] 2.16.8 [id number] 1975 Unknown [id number] 2.16.8 [id number] 1975 Unknown [id number] 2.16.8 [id number] 1975 Unknown [id number] 2.16.8 [id number] 1975 Unknown [id number] 2.16.8 [id number] 1975 Unknown [id number] 2.16.8 [id number] 1961 Unknown [id number] Self-pay [id number] Unknown Self Pay [id number] Social History Date Type Detail Facility Tobacco smoking stat [facility] Unknown if ever smoked [facility] Start: 1975 Sex Assigned At Female F [facility] Goals Date Patient Goal Desired Activity /State Progress note 12-11-2023 Note Date & Type Note Facility 12-11-2023 Note Orthopedic Surgery Subjective Follow-up of the Right Knee 12/11/2023 Patient returns today for her left knee. This has given out on her twice since the last time I saw her. She did have an MRI last time I saw her that demonstrated just some thinning of the articular cartilage but no meniscal lesions. However now that she is having instability symptoms, I am worried that she has developed a new meniscus tear. My recommendation would be to get an MRI. Will submit a C9 for this. Will also order repeat x-rays 04/02/23December Nasrin Rowley is a 47 y.o. female presenting [...] affect Neurological: alert Skin: intact Lymphadenopathy: none Positive left knee Rubio's sign Imaging personally reviewed: MRI from outside facility reviewed that showed: Thinning of meniscal cartilage and increased inflammation of all compartments of the left knee. Assessment/Plan Emma Rowley is a 47 y.o. female left knee pain. Recommend MRI left knee. We will also order repeat x-rays today Submit [id number] authorization for MRI left knee Keep same restrictions until Three Months No additional allowances need to be added to the claim at this time [facility] Progress note 05-11-2023 Note Date & Type Note Facility 05-11-[address] 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 She at times has to lift [...] - RTC as needed Erickson Castelan, MS3 [facility] 04/02/23 11:[address] [facility] Progress note 07-17-2023 Note Date & Type Note Facility 01-29-2023 Note -------- Attestation signed by Ivy Waters MD at 01/29/2023 1:15 PM I personally saw and examined the patient on the same date of service as resident/fellow . I discussed the findings and therapeutic plan with the resident/fellow . I agree with the documentation, except for any edits/updates below. Teaching Physician's Revisions: No revisions -------- Orthopedic Surgery Subjective 12/07/2022 Right Knee Extensive [...] Medrol Dosepak for inflammation Cindy Cartagena, M3 [facility] Progress note 12-18-2022 Note Date & Type Note Facility 12-18-2022 Note Orthopedic Surgery Subjective 12/07/2022 Right [...] - Right (12/07/2022) Ok to start PT [facility] Progress note 12-18-2022 Note Date & Type Note Facility 12-18-[address] [facility] Evaluation note Note Date & Type Note Facility Evaluation note No Assessments Information Avail able [facility] Summary Purpose Family History No Family History Records FoundNo Family History Records FoundNo Family History Records Found Advance Directives No Advanced Directives Records FoundNo Advanced Directives Records FoundNo Advanced Directives Records Found Additional Source Comments INFORMATION SOURCE (unrecogn ized section and content) DATE CREATED AUTHOR 01/18/2022 [facility] DATE CREATED AUTHOR AUTHOR'S ORGANIZ ATION 11/04/2023 [facility] DATE CREATED AUTHOR AUTHOR'S ORGANIZ ATION 12/12/[address] [facility] FOR RECORDS PERTAINING TO PATIENTS WHO [...] BE BASED ON THE PRIMARY CLINICAL RECORDS. [employer] provides no warranty or guarantee of the accuracy or completeness of information in this document.
== END 2024-01-10 09:56 | disposition home or self-care (01) ==
LOC: MRI 09:55
PROVIDERS: PCP Family Medicine
DX: M25.562 Pain in left knee (principal)
CPT/HCPCS: 73721